=== PATIENT | female | born 1940 | race Caucasian/White ===

== ENCOUNTER 2016-10-23 11:28 | Emergency (ER) | payer MEDICAID, MEDICARE ==
[~2016-10-23] VITALS: Ht 157.5 cm; Wt 69.0 kg
[~2016-10-23 11:28] MED LIST: ASPI-482 PO; FAMO20 PO; HUMLIS7525 SQ; INSREG SQ; LISI-661 PO; LORA10TA7 PO; NAPR-58 PO; SIMV5TAB6 PO
[2016-10-23] MEDS ORDERED: HYDR25TA PO (11:46)
[2016-10-23] MEDS ORDERED: PANT40TA25 PO (11:46)
[2016-10-23] MEDS ORDERED: MECL-111 PO (11:46)
[2016-10-23] MEDS ORDERED: KETOROLAC TROMETHAMINE 30 MG/ML VIAL IVP ONE (12:45)
[2016-10-23] MEDS ORDERED: ONDANSETRON HCL 4 MG/2 ML VIAL IVP ONE (12:45)
[2016-10-23] MEDS ORDERED: SODIUM CHLORIDE 0.9% 1,000 ML IV ONE (12:45)
[2016-10-23 13:04] LABS: BASOPHILS % (AUTO) 0.5 % (0.0-2.0); EOSINOPHILS % (AUTO) 1.5 % (1.0-6.0); HEMATOCRIT 37.9 % (36-46); HEMOGLOBIN 12.6 g/dL (12.0-16.0); LYMPHOCYTES # (AUTO) 2.9 K/uL (1.0-4.8); LYMPHOCYTES % (AUTO) 39.6 % (22.0-44.0); MEAN CORPUSCULAR HEMOGLOBIN 29.3 pg (26.0-34.0); MEAN CORPUSCULAR HGB CONC 33.2 G/dL (31.0-37.0); MEAN CORPUSCULAR VOLUME 88 fL (80-100); MONOCYTES # (AUTO) 0.5 K/uL (0.1-1.0); MONOCYTES % (AUTO) 6.7 % (2.0-9.0); NEUTROPHILS # (AUTO) 3.8 K/uL (1.8-7.7); NEUTROPHILS % (AUTO) 51.7 % (40.0-70.0); PLATELET COUNT (AUTO) 193 K/uL (150-450); RED CELL DISTRIBUTION WIDTH 13.5 % (11.5-14.5); WHITE BLOOD COUNT (AUTO) 7.3 K/uL (4.5-11.0)
[2016-10-23 13:23] LABS: CALCIUM, TOTAL 8.2 mg/dL (8.8-10.5); CREATININE 0.96 mg/dL (0.60-1.30); POTASSIUM 3.5 mmol/L (3.5-5.1)
[2016-10-23 13:27] LABS: ALBUMIN 3.9 g/dL (3.4-5.0); BILIRUBIN,TOTAL 0.3 mg/dL (0.1-1.0); TOTAL PROTEIN, SERUM 7.3 g/dL (6.4-8.2)
[2016-10-23 13:58] LABS: APPEARANCE,URINE CLOUDY (CLEAR); GLUCOSE, URINE (UA) NEGATIVE (NEGATIVE); KETONES,URINE NEGATIVE (NEGATIVE); LEUKOCYTE ESTERASE ,URINE SMALL (NEGATIVE); OCCULT BLOOD,URINE NEGATIVE (NEGATIVE); PH,URINE 6.5 (5.0-8.0); PROTEIN,URINE NEGATIVE (NEGATIVE)
[2016-10-23 13:59] LABS: ADD UA MICROSCOPIC YES
[2016-10-23 14:15] LABS: RBC,URINE None Seen /HPF (0-2)
[2016-10-23 14:18] LABS: SQUAMOUS EPITHELIAL CELL,UR Rare /LPF (None Seen)
[2016-10-23] MEDS ORDERED: HYDROCODONE/ACETAMINOPHEN 5-325 MG TABLET PO ONE (21:00)
[2016-10-23] MEDS ORDERED: CIPROFLOXACIN HCL 250 MG TABLET PO ONE (21:15)
[2016-10-23 21:21] VITALS: BP 141/71
[2017-02-21] MEDS ORDERED: MECL-111 PO (11:48)
[2017-02-21] MEDS ORDERED: HUMLIS7525 SQ (11:48)
== END 2016-10-23 21:40 | disposition home or self-care (01) ==
LOC: EMS 11:31
DX: N21.1 Calculus in urethra (principal); N39.0 Urinary tract infection, site not specified; E11.9 Type 2 diabetes mellitus without complications; K21.9 Gastro-esophageal reflux disease without esophagitis; E78.00 Pure hypercholesterolemia, unspecified; I10 Essential (primary) hypertension; Z79.4 Long term (current) use of insulin; Z86.73 Personal history of transient ischemic attack (TIA), and cerebral infarction without residual deficits; Z79.82 Long term (current) use of aspirin
CPT/HCPCS: 36415; 71010; 74176; 76700; 80053; 81001; 82962; 83690; 84484; 85025; 87077; 87086; 87186; 93005; 96361; 96374; 96375; 99285; J1885; J2405; J7030

== ENCOUNTER 2017-02-25 05:57 | Day surgery (SDC) | payer MEDICARE ==
[~2017-02-25] VITALS: Ht 151.1 cm; Wt 71.8 kg
[~2017-02-25 05:57] MED LIST changes: -FAMO20 PO; -INSREG SQ; +MECL-111 PO; +PANT40TA25 PO; -SIMV5TAB6 PO
[2017-02-25] MEDS ORDERED: SODIUM CHLORIDE 0.9% 1,000 ML IV ONE ×2 (06:05→06:30)
[2017-02-25 07:22] LABS: GLUCOSE,POINT OF CARE 309 MG/DL (70-110)
[2017-02-25] MEDS ORDERED: LIDOCAINE HCL/PF 2% 5 ML VIAL INJ ONE (12:00)
[2017-02-25] MEDS ORDERED: PROPOFOL 1% 20 ML VIAL IVP ONE (12:00)
== END 2017-02-25 09:40 | disposition home or self-care (01) ==
LOC: SURGERY 05:57
PROVIDERS: ATTEND Specialist
DX: K29.70 Gastritis, unspecified, without bleeding (principal); K44.9 Diaphragmatic hernia without obstruction or gangrene; K21.9 Gastro-esophageal reflux disease without esophagitis; M19.90 Unspecified osteoarthritis, unspecified site; E78.00 Pure hypercholesterolemia, unspecified; E11.22 Type 2 diabetes mellitus with diabetic chronic kidney disease; I12.9 Hypertensive chronic kidney disease with stage 1 through stage 4 chronic kidney disease, or unspecified chronic kidney disease; N18.9 Chronic kidney disease, unspecified; K75.81 Nonalcoholic steatohepatitis (NASH); Z72.89 Other problems related to lifestyle; Z90.49 Acquired absence of other specified parts of digestive tract; Z79.82 Long term (current) use of aspirin; Z98.42 Cataract extraction status, left eye; Z98.41 Cataract extraction status, right eye; Z90.710 Acquired absence of both cervix and uterus; Z87.01 Personal history of pneumonia (recurrent)
CPT/HCPCS: 43239; 82962; 88305; 88312; C1769; J2704; J3490; J7030

== ENCOUNTER 2018-02-10 13:22 | Emergency (ER) | payer MEDICARE ==
[~2018-02-10] VITALS: Ht 152.4 cm; Wt 70.0 kg
[2018-02-10 13:33] LABS: GLUCOSE,POINT OF CARE 197 MG/DL (70-110)
[2018-02-10] MEDS ORDERED: IOVERSOL 350 MG/ML 100 ML VIAL ONE (15:03)
[2018-02-10] MEDS ORDERED: SODIUM CHLORIDE 0.9% 100 ML ONE (15:03)
[2018-02-10] MEDS ORDERED: BARIUM SULFATE 0.1% SUSPENSION 450 ML BOTTLE PO ONE (15:30)
[2018-02-10] MEDS ORDERED: LISI-662 PO (15:30)
[2018-02-10 16:06] LABS: EOSINOPHILS % (AUTO) 2.5 % (1.0-6.0); HEMATOCRIT 37.1 % (36-46); HEMOGLOBIN 12.4 g/dL (12.0-16.0); LYMPHOCYTES % (AUTO) 34.7 % (22.0-44.0); MEAN CORPUSCULAR HEMOGLOBIN 29.1 pg (26.0-34.0); MEAN CORPUSCULAR HGB CONC 33.5 G/dL (31.0-37.0); MEAN CORPUSCULAR VOLUME 87 fL (80-100); MONOCYTES # (AUTO) 0.4 K/uL (0.1-1.0); MONOCYTES % (AUTO) 7.5 % (2.0-9.0); NEUTROPHILS # (AUTO) 3.1 K/uL (1.8-7.7); NEUTROPHILS % (AUTO) 54.3 % (40.0-70.0); PLATELET COUNT (AUTO) 202 K/uL (150-450); RED BLOOD CELL COUNT(AUTO) 4.28 MIL/uL (4.00-5.20); RED CELL DISTRIBUTION WIDTH 13.7 % (11.5-14.5)
[2018-02-10 16:19] LABS: CALCIUM, TOTAL 8.7 mg/dL (8.8-10.5); CREATININE 1.08 mg/dL (0.60-1.30)
[2018-02-10 16:24] LABS: ALBUMIN 3.6 g/dL (3.4-5.0); BILIRUBIN,TOTAL 0.3 mg/dL (0.1-1.0); TOTAL PROTEIN, SERUM 7.2 g/dL (6.4-8.2)
[2018-02-10 18:31] LABS: APPEARANCE,URINE CLEAR (CLEAR); BILIRUBIN,URINE NEGATIVE (NEGATIVE); GLUCOSE, URINE (UA) 100 mg/dL (NEGATIVE); KETONES,URINE NEGATIVE (NEGATIVE); LEUKOCYTE ESTERASE ,URINE SMALL (NEGATIVE); NITRATE,URINE NEGATIVE (NEGATIVE); OCCULT BLOOD,URINE NEGATIVE (NEGATIVE); PROTEIN,URINE NEGATIVE (NEGATIVE)
[2018-02-10 18:43] LABS: BACTERIA,URINE Few /HPF (None Seen); SQUAMOUS EPITHELIAL CELL,UR Rare /LPF (None Seen)
[2018-02-10 19:00] VITALS: BP 152/94
== END 2018-02-10 19:10 | disposition home or self-care (01) ==
LOC: EMS 13:23
DX: S92.422A Displaced fracture of distal phalanx of left great toe, initial encounter for closed fracture (principal); I10 Essential (primary) hypertension; N39.0 Urinary tract infection, site not specified; K21.9 Gastro-esophageal reflux disease without esophagitis; E78.00 Pure hypercholesterolemia, unspecified; E11.9 Type 2 diabetes mellitus without complications; Z86.73 Personal history of transient ischemic attack (TIA), and cerebral infarction without residual deficits; Z79.4 Long term (current) use of insulin; Z79.82 Long term (current) use of aspirin; W22.8XXA Striking against or struck by other objects, initial encounter; Y93.01 Activity, walking, marching and hiking; Y92.89 Other specified places as the place of occurrence of the external cause; Y99.8 Other external cause status
CPT/HCPCS: 36415; 73630; 74177; 80053; 81001; 82962; 83690; 84484; 85025; 87077; 87086; 93005; 99285; J7050; Q9967

== ENCOUNTER 2018-02-28 12:17 | Emergency (ER) | payer MEDICARE ==
[~2018-02-28] VITALS: Ht 152.4 cm; Wt 69.1 kg
[~2018-02-28 12:17] MED LIST changes: -LISI-661 PO; +LISI-662 PO; -PANT40TA25 PO
[2018-02-28 12:34] LABS: GLUCOSE,POINT OF CARE 130 MG/DL (70-110)
[2018-02-28 12:57] VITALS: BP 148/79
== END 2018-02-28 13:20 | disposition home or self-care (01) ==
LOC: EMS 12:18
DX: E11.40 Type 2 diabetes mellitus with diabetic neuropathy, unspecified (principal); M79.671 Pain in right foot; M79.672 Pain in left foot; K21.9 Gastro-esophageal reflux disease without esophagitis; E78.00 Pure hypercholesterolemia, unspecified; I10 Essential (primary) hypertension; Z79.4 Long term (current) use of insulin; Z86.73 Personal history of transient ischemic attack (TIA), and cerebral infarction without residual deficits; Z79.82 Long term (current) use of aspirin
CPT/HCPCS: 99283

== ENCOUNTER 2018-07-20 17:15 | Emergency (ER) | payer MEDICARE ==
[~2018-07-20] VITALS: Ht 152.4 cm; Wt 67.7 kg
[2018-07-20] MEDS ORDERED: SODIUM CHLORIDE 0.9% 250 ML IRRIG SOLUTION BOTTLE IRRIG ONE (17:45)
[2018-07-20] MEDS ORDERED: TraMADol HCL 50 MG TABLET PO ONE (17:45)
[2018-07-20 21:38] VITALS: BP 143/75
== END 2018-07-20 21:48 | disposition home or self-care (01) ==
LOC: EMS 17:17
DX: S01.01XA Laceration without foreign body of scalp, initial encounter (principal); S70.02XA Contusion of left hip, initial encounter; E11.9 Type 2 diabetes mellitus without complications; K21.9 Gastro-esophageal reflux disease without esophagitis; E78.00 Pure hypercholesterolemia, unspecified; I10 Essential (primary) hypertension; K76.9 Liver disease, unspecified; Z86.73 Personal history of transient ischemic attack (TIA), and cerebral infarction without residual deficits; Z90.49 Acquired absence of other specified parts of digestive tract; Z90.710 Acquired absence of both cervix and uterus; Z98.51 Tubal ligation status; Z98.890 Other specified postprocedural states; Z79.4 Long term (current) use of insulin; Z79.899 Other long term (current) drug therapy; W01.190A Fall on same level from slipping, tripping and stumbling with subsequent striking against furniture, initial encounter; Y93.89 Activity, other specified; Y92.89 Other specified places as the place of occurrence of the external cause; Y99.8 Other external cause status
CPT/HCPCS: 12002; 70450; 72125; 73503

== ENCOUNTER 2018-10-19 10:48 | Emergency (ER) | payer MEDICARE, MEDICAID ==
[~2018-10-19] VITALS: Ht 149.9 cm; Wt 64.1 kg
[~2018-10-19 10:48] MED LIST changes: -HUMLIS7525 SQ; +METF-444 PO; -NAPR-58 PO; +PANT20TA PO
[2018-10-19] MEDS ORDERED: HYDROCODONE/ACETAMINOPHEN 5-325 MG TABLET PO ONE (11:15)
[2018-10-19] MEDS ORDERED: SODIUM CHLORIDE 0.9% 250 ML IRRIG SOLUTION BOTTLE IRRIG ONE (11:15)
[2018-10-19] MEDS ORDERED: PERTUSS(ACELL),DIPH,TET VAC/PF 0.5 ML VIAL IM ONE (11:15)
[2018-10-19] MEDS ORDERED: LIDOCAINE 1%/EPI 1:200,000/PF 10 ML VIAL INJ ONE (11:30)
[2018-10-19] MEDS ORDERED: BACITRACIN 0.9 GM PACKET OINTMENT TP ONE (13:00)
[2018-10-19 13:04] VITALS: BP 155/82
== END 2018-10-19 14:13 | disposition home or self-care (01) ==
LOC: EMS 10:49
DX: S01.81XA Laceration without foreign body of other part of head, initial encounter (principal); S80.211A Abrasion, right knee, initial encounter; E11.9 Type 2 diabetes mellitus without complications; K21.9 Gastro-esophageal reflux disease without esophagitis; E78.00 Pure hypercholesterolemia, unspecified; I10 Essential (primary) hypertension; Z90.710 Acquired absence of both cervix and uterus; Z98.51 Tubal ligation status; Z79.899 Other long term (current) drug therapy; Z79.82 Long term (current) use of aspirin; W18.09XA Striking against other object with subsequent fall, initial encounter; Y93.89 Activity, other specified; Y92.89 Other specified places as the place of occurrence of the external cause; Y99.8 Other external cause status
CPT/HCPCS: 12013; 70450; 73562; 82962; 90471; 90715; 99284; J3490

== ENCOUNTER → 2018-10-24 | Emergency (ER) | payer MEDICARE, MEDICAID ==
[~2018-10-24] VITALS: Ht 160 cm; Wt 64.1 kg
[~2018-10-24] MED LIST changes: +ACETAMINOPHEN 325 MG TABLET PO ONE; +INSNOV SQ
[2018-10-24 08:45] VITALS: BP 140/66
== END | disposition home or self-care (01) ==
LOC: EMS 08:32
DX: S01.81XD Laceration without foreign body of other part of head, subsequent encounter (principal); E11.9 Type 2 diabetes mellitus without complications; K21.9 Gastro-esophageal reflux disease without esophagitis; E78.00 Pure hypercholesterolemia, unspecified; I10 Essential (primary) hypertension; Z79.4 Long term (current) use of insulin; Z79.899 Other long term (current) drug therapy; Z98.51 Tubal ligation status; Z90.710 Acquired absence of both cervix and uterus; Z86.73 Personal history of transient ischemic attack (TIA), and cerebral infarction without residual deficits; X58.XXXD Exposure to other specified factors, subsequent encounter

== ENCOUNTER 2018-12-20 18:11 | Emergency (ER) | payer MEDICARE, MEDICAID ==
[~2018-12-20] VITALS: Ht 152.4 cm; Wt 68.2 kg
[~2018-12-20 18:11] MED LIST changes: -ACETAMINOPHEN 325 MG TABLET PO ONE; -METF-444 PO
[2018-12-20 18:18] VITALS: BP 149/75
[2018-12-20] MEDS ORDERED: FAMO20 PO (18:23)
[2018-12-20 18:29] LABS: GLUCOSE,POINT OF CARE 173 MG/DL (70-110)
== END 2018-12-20 19:30 | disposition left against medical advice (07) ==
LOC: EMS 18:13
DX: Z53.21 Procedure and treatment not carried out due to patient leaving prior to being seen by health care provider (principal)

== ENCOUNTER 2019-04-01 10:22 | Emergency (ER) | payer MEDICARE, MEDICAID ==
[~2019-04-01] VITALS: Ht 154.9 cm; Wt 70.5 kg
[~2019-04-01 10:22] MED LIST changes: +FAMO20 PO; -LORA10TA7 PO; -MECL-111 PO; -PANT20TA PO
[2019-04-01 10:34] LABS: GLUCOSE,POINT OF CARE 82 MG/DL (70-110)
[2019-04-01] MEDS ORDERED: ASPIRIN 81 MG CHEWABLE TABLET PO ONE (11:30)
[2019-04-01 11:59] LABS: BASOPHILS % (AUTO) 0.6 % (0.0-2.0); EOSINOPHILS % (AUTO) 2.8 % (1.0-6.0); HEMATOCRIT 35.2 % (36-46); HEMOGLOBIN 11.5 g/dL (12.0-16.0); LYMPHOCYTES # (AUTO) 1.9 K/uL (1.0-4.8); MEAN CORPUSCULAR HEMOGLOBIN 28.6 pg (26.0-34.0); MEAN CORPUSCULAR HGB CONC 32.6 G/dL (31.0-37.0); MEAN CORPUSCULAR VOLUME 88 fL (80-100); MONOCYTES # (AUTO) 0.4 K/uL (0.1-1.0); MONOCYTES % (AUTO) 7.1 % (2.0-9.0); NEUTROPHILS # (AUTO) 3.4 K/uL (1.8-7.7); NEUTROPHILS % (AUTO) 57.5 % (40.0-70.0); PLATELET COUNT (AUTO) 184 K/uL (150-450); RED BLOOD CELL COUNT(AUTO) 4.02 MIL/uL (4.00-5.20); RED CELL DISTRIBUTION WIDTH 14.3 % (11.5-14.5)
[2019-04-01 12:06] LABS: CALCIUM, TOTAL 9.1 mg/dL (8.8-10.5); CREATININE 1.02 mg/dL (0.60-1.30); POTASSIUM 4.1 mmol/L (3.5-5.1)
[2019-04-01 12:12] LABS: ALBUMIN 3.5 g/dL (3.4-5.0); BILIRUBIN,TOTAL 0.4 mg/dL (0.1-1.0); TOTAL PROTEIN, SERUM 7.2 g/dL (6.4-8.2)
[2019-04-01 12:40] LABS: APPEARANCE,URINE CLEAR (CLEAR); BILIRUBIN,URINE NEGATIVE (NEGATIVE); GLUCOSE, URINE (UA) NEGATIVE (NEGATIVE); KETONES,URINE NEGATIVE (NEGATIVE); LEUKOCYTE ESTERASE ,URINE SMALL (NEGATIVE); NITRATE,URINE POSITIVE (NEGATIVE); OCCULT BLOOD,URINE NEGATIVE (NEGATIVE); PH,URINE 6.5 (5.0-8.0); PROTEIN,URINE NEGATIVE (NEGATIVE)
[2019-04-01 12:48] LABS: BACTERIA,URINE Many /HPF (None Seen); RBC,URINE None Seen /HPF (0-2); SQUAMOUS EPITHELIAL CELL,UR Few /LPF (None Seen)
[2019-04-01] MEDS ORDERED: CefTRIAXone 1 GM/DEXTROSE 50 ML IV ONE (14:15)
[2019-04-01 14:45] VITALS: BP 138/75
== END 2019-04-01 15:08 | disposition home or self-care (01) ==
LOC: EMS 10:24
DX: N39.0 Urinary tract infection, site not specified (principal); I10 Essential (primary) hypertension; E11.9 Type 2 diabetes mellitus without complications; E78.00 Pure hypercholesterolemia, unspecified; Z90.49 Acquired absence of other specified parts of digestive tract; Z90.710 Acquired absence of both cervix and uterus; Z98.51 Tubal ligation status; Z79.899 Other long term (current) drug therapy
CPT/HCPCS: 36415; 71045; 80053; 81001; 82550; 82962; 83880; 84484; 85025; 87086; 93005; 96365; 99285; J0696

== ENCOUNTER 2019-05-20 18:09 | Emergency (ER) | payer MEDICARE, MEDICAID ==
[~2019-05-20] VITALS: Ht 149.9 cm; Wt 65.9 kg
[2019-05-20 18:25] LABS: GLUCOSE,POINT OF CARE 383 MG/DL (70-110)
[2019-05-20] MEDS ORDERED: HYDROCODONE/ACETAMINOPHEN 5-325 MG TABLET PO ONE (20:00)
[2019-05-20] MEDS ORDERED: 0.9% SODIUM CHLORIDE 10 ML SYRINGE IVP PRN (20:00)
[2019-05-20 20:47] LABS: APPEARANCE,URINE CLEAR (CLEAR); BILIRUBIN,URINE NEGATIVE (NEGATIVE); GLUCOSE, URINE (UA) >=1000 mg/dL (NEGATIVE); KETONES,URINE NEGATIVE (NEGATIVE); LEUKOCYTE ESTERASE ,URINE NEGATIVE (NEGATIVE); NITRATE,URINE NEGATIVE (NEGATIVE); OCCULT BLOOD,URINE NEGATIVE (NEGATIVE); PH,URINE 7.5 (5.0-8.0); PROTEIN,URINE NEGATIVE (NEGATIVE)
[2019-05-20 20:57] LABS: BACTERIA,URINE None Seen /HPF (None Seen); RBC,URINE None Seen /HPF (0-2)
[2019-05-20 20:58] LABS: SQUAMOUS EPITHELIAL CELL,UR Rare /LPF (None Seen)
[2019-05-20 21:05] LABS: BASOPHILS % (AUTO) 0.7 % (0.0-2.0); EOSINOPHILS % (AUTO) 1.9 % (1.0-6.0); HEMATOCRIT 36.8 % (36-46); HEMOGLOBIN 11.9 g/dL (12.0-16.0); LYMPHOCYTES # (AUTO) 2.1 K/uL (1.0-4.8); LYMPHOCYTES % (AUTO) 36.8 % (22.0-44.0); MEAN CORPUSCULAR HEMOGLOBIN 29.2 pg (26.0-34.0); MEAN CORPUSCULAR HGB CONC 32.5 G/dL (31.0-37.0); MEAN CORPUSCULAR VOLUME 90 fL (80-100); MONOCYTES # (AUTO) 0.5 K/uL (0.1-1.0); MONOCYTES % (AUTO) 7.9 % (2.0-9.0); NEUTROPHILS % (AUTO) 52.7 % (40.0-70.0); PLATELET COUNT (AUTO) 186 K/uL (150-450); RED BLOOD CELL COUNT(AUTO) 4.09 MIL/uL (4.00-5.20); RED CELL DISTRIBUTION WIDTH 14.4 % (11.5-14.5)
[2019-05-20 21:14] LABS: CALCIUM, TOTAL 8.8 mg/dL (8.8-10.5); CREATININE 1.24 mg/dL (0.60-1.30); POTASSIUM 3.9 mmol/L (3.5-5.1)
[2019-05-20] MEDS ORDERED: INSULIN REGULAR, HUMAN 100 UNITS/ML SQ ONE (22:45)
[2019-05-20] MEDS ORDERED: SULFAMETHOX/TRIMETH DS 800-160 MG/TABLET PO ONE (22:45)
[2019-05-20] MEDS ORDERED: CEPHALEXIN MONOHYDRATE 500 MG CAPSULE PO ONE (22:45)
[2019-05-20 23:30] VITALS: BP 144/72
== END 2019-05-20 23:34 | disposition home or self-care (01) ==
LOC: EMS 18:11
DX: S80.812A Abrasion, left lower leg, initial encounter (principal); L03.116 Cellulitis of left lower limb; E11.9 Type 2 diabetes mellitus without complications; E78.00 Pure hypercholesterolemia, unspecified; I10 Essential (primary) hypertension; K21.9 Gastro-esophageal reflux disease without esophagitis; Z79.899 Other long term (current) drug therapy; Z86.73 Personal history of transient ischemic attack (TIA), and cerebral infarction without residual deficits; Z90.710 Acquired absence of both cervix and uterus; Z98.51 Tubal ligation status; X58.XXXA Exposure to other specified factors, initial encounter; Y93.89 Activity, other specified; Y92.89 Other specified places as the place of occurrence of the external cause; Y99.8 Other external cause status
CPT/HCPCS: 93970

== ENCOUNTER 2019-11-06 13:20 | Emergency (ER) | payer MEDICARE, MEDICAID ==
[~2019-11-06] VITALS: Ht 152.4 cm; Wt 65.9 kg
[2019-11-06 13:36] LABS: GLUCOSE,POINT OF CARE 173 MG/DL (70-110)
[2019-11-06 14:39] LABS: BASOPHILS % (AUTO) 0.8 % (0.0-2.0); HEMATOCRIT 35.3 % (36-46); HEMOGLOBIN 11.9 g/dL (12.0-16.0); LYMPHOCYTES % (AUTO) 27.1 % (22.0-44.0); MEAN CORPUSCULAR HEMOGLOBIN 29.4 pg (26.0-34.0); MEAN CORPUSCULAR HGB CONC 33.6 G/dL (31.0-37.0); MEAN CORPUSCULAR VOLUME 88 fL (80-100); MONOCYTES # (AUTO) 0.5 K/uL (0.1-1.0); MONOCYTES % (AUTO) 6.6 % (2.0-9.0); NEUTROPHILS # (AUTO) 4.8 K/uL (1.8-7.7); NEUTROPHILS % (AUTO) 64.5 % (40.0-70.0); PLATELET COUNT (AUTO) 195 K/uL (150-450); RED BLOOD CELL COUNT(AUTO) 4.03 MIL/uL (4.00-5.20); RED CELL DISTRIBUTION WIDTH 13.1 % (11.5-14.5)
[2019-11-06 14:53] LABS: CREATININE 1.06 mg/dL (0.60-1.30); POTASSIUM 3.7 mmol/L (3.5-5.1)
[2019-11-06 14:54] LABS: APPEARANCE,URINE CLOUDY (CLEAR); GLUCOSE, URINE (UA) 250 mg/dL (NEGATIVE); KETONES,URINE TRACE mg/dL (NEGATIVE); LEUKOCYTE ESTERASE ,URINE SMALL (NEGATIVE); NITRATE,URINE NEGATIVE (NEGATIVE); OCCULT BLOOD,URINE NEGATIVE (NEGATIVE); PROTEIN,URINE TRACE (NEGATIVE)
[2019-11-06 14:56] LABS: BILIRUBIN,URINE PRELIM. POSITIVE (NEGATIVE)
[2019-11-06 14:59] LABS: ALBUMIN 3.5 g/dL (3.4-5.0); BILIRUBIN,TOTAL 0.3 mg/dL (0.1-1.0); TOTAL PROTEIN, SERUM 6.7 g/dL (6.4-8.2)
[2019-11-06 15:31] LABS: BACTERIA,URINE Few /HPF (None Seen); RBC,URINE None Seen /HPF (0-2); SQUAMOUS EPITHELIAL CELL,UR Rare /LPF (None Seen); WBC,URINE 0-2 /HPF (0-5)
[2019-11-06 15:38] VITALS: BP 137/84
[2019-11-06 15:50] LABS: GLUCOSE,POINT OF CARE 91 MG/DL (70-110)
== END 2019-11-06 15:56 | disposition home or self-care (01) ==
LOC: EMS 13:21
DX: E11.649 Type 2 diabetes mellitus with hypoglycemia without coma (principal); E78.00 Pure hypercholesterolemia, unspecified; I10 Essential (primary) hypertension; K21.9 Gastro-esophageal reflux disease without esophagitis; Z90.710 Acquired absence of both cervix and uterus; Z98.51 Tubal ligation status; Z98.890 Other specified postprocedural states; Z86.73 Personal history of transient ischemic attack (TIA), and cerebral infarction without residual deficits; Z79.899 Other long term (current) drug therapy; Z79.4 Long term (current) use of insulin

== ENCOUNTER 2019-11-29 23:02 | Emergency (ER) | payer MEDICARE, MEDICAID ==
[~2019-11-29] VITALS: Ht 152.4 cm; Wt 66.4 kg
[2019-11-29 23:20] LABS: GLUCOSE,POINT OF CARE 36 MG/DL (70-110)
[2019-11-30] MEDS ORDERED: 0.9% SODIUM CHLORIDE 10 ML SYRINGE IVP PRN
[2019-11-30] MEDS ORDERED: DEXTROSE 50%-WATER 25 GM/50 ML SYRINGE IVP ONE
[2019-11-30 00:44] LABS: BASOPHILS % (AUTO) 0.8 % (0.0-2.0); EOSINOPHILS % (AUTO) 0.7 % (1.0-6.0); HEMATOCRIT 36.1 % (36-46); HEMOGLOBIN 11.9 g/dL (12.0-16.0); LYMPHOCYTES # (AUTO) 1.5 K/uL (1.0-4.8); LYMPHOCYTES % (AUTO) 21.3 % (22.0-44.0); MEAN CORPUSCULAR HEMOGLOBIN 28.8 pg (26.0-34.0); MEAN CORPUSCULAR VOLUME 87 fL (80-100); MONOCYTES # (AUTO) 0.5 K/uL (0.1-1.0); MONOCYTES % (AUTO) 7.2 % (2.0-9.0); PLATELET COUNT (AUTO) 178 K/uL (150-450); RED BLOOD CELL COUNT(AUTO) 4.15 MIL/uL (4.00-5.20); RED CELL DISTRIBUTION WIDTH 13.6 % (11.5-14.5)
[2019-11-30 00:48] LABS: GLUCOSE,POINT OF CARE 156 MG/DL (70-110)
[2019-11-30 00:54] LABS: ANION GAP 7 mmol/L (8-16); CARBON DIOXIDE 26 mmol/L (22-29); CHLORIDE 107 mmol/L (98-107); CREATININE 1.13 mg/dL (0.60-1.30); GLOMERULAR FILTR. RATE CALC 46 mL/min (>60); GLUCOSE,RANDOM 152 mg/dL (70-110); POTASSIUM 4.3 mmol/L (3.5-5.1); SODIUM SERUM 140 mmol/L (136-145); UREA NITROGEN, BLOOD 24 mg/dL (7-18)
[2019-11-30 01:05] LABS: ALANINE AMINOTRANSFERASE 19 U/L (12-78); ALBUMIN 3.7 g/dL (3.4-5.0); ALKALINE PHOSPHATASE 70 U/L (46-116); ASPARTATE AMINOTRANSFERASE 17 U/L (15-37); BILIRUBIN,TOTAL 0.3 mg/dL (0.1-1.0); CALCIUM, TOTAL 8.6 mg/dL (8.8-10.5); TOTAL PROTEIN, SERUM 6.9 g/dL (6.4-8.2)
[2019-11-30 01:07] LABS: LACTIC ACID 2.5 mmol/L (0.4-2.0)
[2019-11-30] MEDS ORDERED: SODIUM CHLORIDE 0.9% 1,000 ML IV ONE (01:45)
[2019-11-30 01:57] LABS: GLUCOSE,POINT OF CARE 159 MG/DL (70-110)
[2019-11-30 04:54] LABS: GLUCOSE,POINT OF CARE 165 MG/DL (70-110)
[2019-11-30 05:30] VITALS: BP 133/74
== END 2019-11-30 05:30 | disposition home or self-care (01) ==
LOC: EMS 23:02
DX: E11.649 Type 2 diabetes mellitus with hypoglycemia without coma (principal); I10 Essential (primary) hypertension; E78.00 Pure hypercholesterolemia, unspecified; K21.9 Gastro-esophageal reflux disease without esophagitis; Z79.4 Long term (current) use of insulin
CPT/HCPCS: 36415; 71045; 80053; 82962; 83605; 85025; 93005; 96361; 96374; 99285; J7030

== ENCOUNTER 2020-03-29 07:41 | Emergency (ER) | payer MEDICARE, MEDICAID ==
[~2020-03-29] VITALS: Ht 152.4 cm; Wt 65.0 kg
[2020-03-29 07:46] VITALS: BP 164/74
[2020-03-29] MEDS ORDERED: ACETAMINOPHEN 500 MG TABLET PO ONE (08:15)
== END 2020-03-29 10:40 | disposition home or self-care (01) ==
LOC: EMS 07:45
DX: S00.83XA Contusion of other part of head, initial encounter (principal); M47.812 Spondylosis without myelopathy or radiculopathy, cervical region; I10 Essential (primary) hypertension; E78.00 Pure hypercholesterolemia, unspecified; E11.9 Type 2 diabetes mellitus without complications; K21.9 Gastro-esophageal reflux disease without esophagitis; Z79.899 Other long term (current) drug therapy; W18.39XA Other fall on same level, initial encounter; Y93.89 Activity, other specified; Y92.89 Other specified places as the place of occurrence of the external cause; Y99.8 Other external cause status
CPT/HCPCS: 72040

== ENCOUNTER 2021-04-14 08:09 | Emergency (ER) | payer MEDICARE, MEDICAID ==
[~2021-04-14] VITALS: Ht 149.9 cm; Wt 61.0 kg
[~2021-04-14 08:09] MED LIST changes: -LISI-662 PO; +LISI-894 PO
[2021-04-14] MEDS ORDERED: DOXY50 PO (08:26)
[2021-04-14] MEDS ORDERED: INSLAN SQ (08:26)
[2021-04-14] MEDS ORDERED: LOSA25TA41 PO (08:28)
[2021-04-14] MEDS ORDERED: ACETAMINOPHEN 325 MG TABLET PO ONE (09:00)
[2021-04-14 09:18] LABS: BASOPHILS % (AUTO) 0.9 % (0.0-2.0); EOSINOPHILS % (AUTO) 1.8 % (1.0-6.0); LYMPHOCYTES # (AUTO) 1.8 K/uL (1.0-4.8); MEAN CORPUSCULAR HEMOGLOBIN 29.6 pg (26.0-34.0); MEAN CORPUSCULAR HGB CONC 33.3 G/dL (31.0-37.0); MEAN CORPUSCULAR VOLUME 89 fL (80-100); MONOCYTES # (AUTO) 0.5 K/uL (0.1-1.0); MONOCYTES % (AUTO) 9.5 % (2.0-9.0); NEUTROPHILS # (AUTO) 3.1 K/uL (1.8-7.7); NEUTROPHILS % (AUTO) 55.8 % (40.0-70.0); PLATELET COUNT (AUTO) 166 K/uL (150-450); RED BLOOD CELL COUNT(AUTO) 3.72 MIL/uL (4.00-5.20); RED CELL DISTRIBUTION WIDTH 13.2 % (11.5-14.5)
[2021-04-14 09:29] LABS: ANION GAP 8 mmol/L (8-16); CALCIUM, TOTAL 8.5 mg/dL (8.8-10.5); CARBON DIOXIDE 28 mmol/L (22-29); CHLORIDE 106 mmol/L (98-107); CREATININE 0.83 mg/dL (0.60-1.30); GLOMERULAR FILTR. RATE CALC > 60 mL/min (>60); GLUCOSE,RANDOM 72 mg/dL (70-110); POTASSIUM 3.5 mmol/L (3.5-5.1); SODIUM SERUM 142 mmol/L (136-145); UREA NITROGEN, BLOOD 13 mg/dL (7-18)
[2021-04-14 09:35] LABS: PROTHROMBIN TIME 11.1 SEC (9.4-11.6)
[2021-04-14 09:36] LABS: ALANINE AMINOTRANSFERASE 14 U/L (12-78); ALBUMIN 3.4 g/dL (3.4-5.0); ALKALINE PHOSPHATASE 85 U/L (46-116); ASPARTATE AMINOTRANSFERASE 16 U/L (15-37); BILIRUBIN,TOTAL 0.4 mg/dL (0.1-1.0); LIPASE 73 U/L (73-393); TOTAL PROTEIN, SERUM 6.5 g/dL (6.4-8.2)
[2021-04-14 12:00] VITALS: BP 124/72
== END 2021-04-14 12:43 | disposition home or self-care (01) ==
LOC: EMS 08:09
DX: M79.89 Other specified soft tissue disorders (principal); I11.0 Hypertensive heart disease with heart failure; I50.9 Heart failure, unspecified; E11.9 Type 2 diabetes mellitus without complications; K21.9 Gastro-esophageal reflux disease without esophagitis; E78.00 Pure hypercholesterolemia, unspecified; Z90.710 Acquired absence of both cervix and uterus; Z86.73 Personal history of transient ischemic attack (TIA), and cerebral infarction without residual deficits; Z79.4 Long term (current) use of insulin; Z79.82 Long term (current) use of aspirin
CPT/HCPCS: 71045; 80053; 82962; 83690; 84484; 85025; 85610; 93005; 93970; 99285; 36415-L1; 36415-TC

== ENCOUNTER 2022-03-16 07:41 | Emergency (ER) | payer MEDICARE, MEDICAID ==
[~2022-03-16] VITALS: Ht 154.9 cm; Wt 55.9 kg
[~2022-03-16 07:41] MED LIST changes: +DOXY50 PO; +INSLAN SQ; -LISI-894 PO; +LOSA25TA41 PO
[2022-03-16] MEDS ORDERED: OMEP20 PO (08:21)
[2022-03-16] MEDS ORDERED: APIX5TAB PO (08:21)
[2022-03-16] MEDS ORDERED: BENZ-70 PO (08:21)
[2022-03-16] MEDS ORDERED: LIDO1ADH16 TP (08:21)
[2022-03-16] MEDS ORDERED: POTA-92 PO (08:21)
[2022-03-16] MEDS ORDERED: INSU100V SQ (08:21)
[2022-03-16] MEDS ORDERED: CYAN100T45 PO (08:21)
[2022-03-16] MEDS ORDERED: TRIA15CR49 TP (08:21)
[2022-03-16] MEDS ORDERED: DAPA5TAB PO (08:21)
[2022-03-16] MEDS ORDERED: TOLT2CAP PO (08:21)
[2022-03-16] MEDS ORDERED: CHOL25TA4 PO (08:21)
[2022-03-16] MEDS ORDERED: FLUT16H NASAL (08:21)
[2022-03-16 08:42] LABS: BASOPHILS % (AUTO) 0.9 % (0.0-2.0); EOSINOPHILS % (AUTO) 1.9 % (1.0-6.0); HEMATOCRIT 31.5 % (36-46); HEMOGLOBIN 10.5 g/dL (12.0-16.0); LYMPHOCYTES # (AUTO) 1.4 K/uL (1.0-4.8); LYMPHOCYTES % (AUTO) 28.6 % (22.0-44.0); MEAN CORPUSCULAR HEMOGLOBIN 28.4 pg (26.0-34.0); MEAN CORPUSCULAR HGB CONC 33.4 G/dL (31.0-37.0); MEAN CORPUSCULAR VOLUME 85 fL (80-100); MONOCYTES # (AUTO) 0.4 K/uL (0.1-1.0); MONOCYTES % (AUTO) 7.1 % (2.0-9.0); NEUTROPHILS # (AUTO) 3.1 K/uL (1.8-7.7); NEUTROPHILS % (AUTO) 61.5 % (40.0-70.0); PLATELET COUNT (AUTO) 200 K/uL (150-450); RED BLOOD CELL COUNT(AUTO) 3.71 MIL/uL (4.00-5.20); RED CELL DISTRIBUTION WIDTH 14.1 % (11.5-14.5)
[2022-03-16 08:47] LABS: CALCIUM, TOTAL 8.4 mg/dL (8.8-10.5); POTASSIUM 3.6 mmol/L (3.5-5.1)
[2022-03-16 08:53] LABS: ALBUMIN 3.2 g/dL (3.4-5.0); BILIRUBIN,TOTAL 0.5 mg/dL (0.1-1.0); TOTAL PROTEIN, SERUM 6.6 g/dL (6.4-8.2)
[2022-03-16 11:15] VITALS: BP 159/76
== END 2022-03-16 12:36 | disposition home or self-care (01) ==
LOC: EMS 07:42
DX: S83.92XA Sprain of unspecified site of left knee, initial encounter (principal); S93.402A Sprain of unspecified ligament of left ankle, initial encounter; S00.03XA Contusion of scalp, initial encounter; S80.211A Abrasion, right knee, initial encounter; R53.1 Weakness; R51.9 Headache, unspecified; E11.9 Type 2 diabetes mellitus without complications; K80.80 Other cholelithiasis without obstruction; E78.00 Pure hypercholesterolemia, unspecified; I10 Essential (primary) hypertension; Z86.73 Personal history of transient ischemic attack (TIA), and cerebral infarction without residual deficits; Z87.19 Personal history of other diseases of the digestive system; Z98.890 Other specified postprocedural states; Z90.710 Acquired absence of both cervix and uterus; Z98.51 Tubal ligation status; W19.XXXA Unspecified fall, initial encounter; Y93.89 Activity, other specified; Y92.89 Other specified places as the place of occurrence of the external cause; Y99.8 Other external cause status
CPT/HCPCS: 70450; 80053; 82962; 83880; 84484; 85025; 93005; 99285

== ENCOUNTER 2022-08-01 21:41 | Inpatient (IN) | payer MEDICARE, MEDICAID ==
[~2022-08-01] VITALS: Ht 152.4 cm; Wt 58.5 kg
[~2022-08-01 21:41] MED LIST changes: +APIX5TAB PO; -ASPI-482 PO; +BENZ-70 PO; +CHOL25TA4 PO; +CYAN100T45 PO; +DAPA5TAB PO; -DOXY50 PO; -FAMO20 PO; +FLUT16SP NASAL; -INSLAN SQ; -INSNOV SQ; +INSU100V SQ; +LIDO1ADH16 TP; +OMEP20 PO; +POTA-92 PO; +TOLT2CAP PO; +TRIA15CR49 TP
[2022-08-01 21:55] LABS: COVID AG,FIA SOURCE NASAL SWAB
[2022-08-01 21:57] LABS: BASOPHILS % (AUTO) 0.7 % (0.0-2.0); HEMATOCRIT 30.5 % (36-46); HEMOGLOBIN 10.2 g/dL (12.0-16.0); LYMPHOCYTES # (AUTO) 2.2 K/uL (1.0-4.8); LYMPHOCYTES % (AUTO) 35.2 % (22.0-44.0); MEAN CORPUSCULAR HEMOGLOBIN 29.2 pg (26.0-34.0); MEAN CORPUSCULAR HGB CONC 33.6 G/dL (31.0-37.0); MEAN CORPUSCULAR VOLUME 87 fL (80-100); MONOCYTES # (AUTO) 0.6 K/uL (0.1-1.0); MONOCYTES % (AUTO) 9.2 % (2.0-9.0); NEUTROPHILS # (AUTO) 3.3 K/uL (1.8-7.7); NEUTROPHILS % (AUTO) 52.9 % (40.0-70.0); PLATELET COUNT (AUTO) 184 K/uL (150-450); RED BLOOD CELL COUNT(AUTO) 3.51 MIL/uL (4.00-5.20); RED CELL DISTRIBUTION WIDTH 14.3 % (11.5-14.5)
[2022-08-01] MEDS ORDERED: ATORVASTATIN CALCIUM 40 MG TABLET PO ONE (22:00)
[2022-08-01] MEDS ORDERED: HEPARIN SODIUM,PORCINE 5,000 UNITS/ML VIAL IVP ONE (22:00)
[2022-08-01 22:05] LABS: ANION GAP 9 mmol/L (8-16); CALCIUM, TOTAL 8.5 mg/dL (8.8-10.5); CARBON DIOXIDE 26 mmol/L (22-29); CHLORIDE 110 mmol/L (98-107); CREATININE 0.77 mg/dL (0.60-1.30); GLUCOSE,RANDOM 98 mg/dL (70-110); SODIUM SERUM 145 mmol/L (136-145); UREA NITROGEN, BLOOD 14 mg/dL (7-18)
[2022-08-01 22:07] LABS: GLOMERULAR FILTR. RATE CALC > 60 mL/min (>60)
[2022-08-01 22:09] LABS: PROTHROMBIN TIME 10.6 SEC (9.4-11.6)
[2022-08-01] MEDS ORDERED: ONDANSETRON HCL 4 MG/2 ML VIAL IVP ONE (22:15)
[2022-08-01] MEDS ORDERED: MORPHINE SULFATE 2 MG/ML SYRINGE IVP ONE (22:15)
[2022-08-01] MEDS ORDERED: MORPHINE SULFATE 4 MG/ML SYRINGE IVP ONE (22:15)
[2022-08-01] MEDS ORDERED: LIDOCAINE/PF 1% 30 ML VIAL ONE (22:17)
[2022-08-01] MEDS ORDERED: IOHEXOL 300 MG/ML 100 ML VIAL ONE ×2 (22:17→23:15)
[2022-08-01] MEDS ORDERED: HEPARIN SODIUM 1000 UNITS/NS 1,000 ML ONE (22:17)
[2022-08-01] MEDS ORDERED: SODIUM BICARBONATE 50 MEQ/50 ML VIAL ONE (22:17)
[2022-08-01 22:22] LABS: B-TYPE NATRIURETIC PEPTIDE 230 pg/mL (0-100)
[2022-08-01 22:30] LABS: ALANINE AMINOTRANSFERASE 15 U/L (12-78); ALBUMIN 3.3 g/dL (3.4-5.0); ALKALINE PHOSPHATASE 75 U/L (46-116); ASPARTATE AMINOTRANSFERASE 17 U/L (15-37); BILIRUBIN,TOTAL 0.2 mg/dL (0.1-1.0); CREATINE KINASE, TOTAL ONLY 233 U/L (26-192); TOTAL PROTEIN, SERUM 6.3 g/dL (6.4-8.2)
[2022-08-01] MEDS ORDERED: POTASSIUM CHL 10 MEQ/WATER 50 ML IV PRN (22:30)
[2022-08-01] MEDS ORDERED: VERAPAMIL HCL 2.5 MG/ML 2 ML VIAL ONE (22:32)
[2022-08-01] MEDS ORDERED: MIDAZOLAM HCL 2 MG/2 ML VIAL ONE (22:32)
[2022-08-01] MEDS ORDERED: NITROGLYCERIN 50 MG/D5% WATER 250 ML ONE (22:32)
[2022-08-01] MEDS ORDERED: FentaNYL CITRATE PF 100 MCG/2 ML VIAL ONE (22:32)
[2022-08-01 22:35] VITALS: BP 107/66
[2022-08-01] MEDS ORDERED: IOHEXOL 300 MG/ML 100 ML VIAL IARTER ONE ×2 (23:00→23:30)
[2022-08-01] MEDS ORDERED: HEPARIN SODIUM,PORCINE 1,000 UNITS/ML 10 ML VIAL IARTER ONE (23:00)
[2022-08-01] MEDS ORDERED: MORPHINE SULFATE 2 MG/ML SYRINGE IVP PRN (23:00)
[2022-08-01] MEDS ORDERED: ONDANSETRON HCL 4 MG/2 ML VIAL IVP PRN (23:00)
[2022-08-01] MEDS ORDERED: NITROGLYCERIN/D5W 50 MG/250 ML IV BOTTLE IARTER ONE (23:00)
[2022-08-01] MEDS ORDERED: LIDOCAINE 1% 30 ML/SOD BICARB 8.4% 4 ML SQ ONE (23:00)
[2022-08-01] MEDS ORDERED: BISACODYL 10 MG RECTAL RECTAL SUPPOSITORY PR PRN (23:00)
[2022-08-01] MEDS ORDERED: FentaNYL CITRATE PF 100 MCG/2 ML VIAL IVP ONE ×2 (23:00)
[2022-08-01] MEDS ORDERED: ZOLPIDEM TARTRATE 5 MG TABLET PO PRN (23:00)
[2022-08-01] MEDS ORDERED: MAGNESIUM HYDROXIDE SUSPENSION 30 ML UDCUP PO PRN (23:00)
[2022-08-01] MEDS ORDERED: HYDROCODONE/ACETAMINOPHEN 5-325 MG TABLET PO PRN (23:00)
[2022-08-01] MEDS ORDERED: SODIUM CHLORIDE 0.9% 500 ML IV ONE (23:00)
[2022-08-01] MEDS ORDERED: VERAPAMIL HCL 2.5 MG/ML 2 ML VIAL IARTER ONE (23:00)
[2022-08-01] MEDS ORDERED: ALBUTEROL SULFATE 2.5 MG/0.5 ML NEB SOLUTION NEB PRN (23:00)
[2022-08-01] MEDS ORDERED: HEPARIN SODIUM 1000 UNITS/NS 1,000 ML IARTER ONE (23:00)
[2022-08-01] MEDS ORDERED: IPRATROPIUM BROMIDE 0.5 MG/2.5 ML NEB SOLUTION NEB PRN (23:00)
[2022-08-01] MEDS ORDERED: PHENYLEPHRINE HCL IN 0.9% NACL 400 MCG/10 ML SYRINGE IVP ONE ×2 (23:04→23:30)
[2022-08-01] MEDS ORDERED: TICAGRELOR 90 MG TABLET PO ONE (23:30)
[2022-08-01 23:35] VITALS: BP 113/69
[2022-08-01] MEDS ORDERED: TICAGRELOR 90 MG TABLET ONE (23:36)
[2022-08-02] VITALS (18 sets, daily range): BP systolic 97–118; BP diastolic 38–65
[2022-08-02] MEDS: POTASSIUM CHLORIDE 20 MEQ ER TABLET PO PRN (01:16)
[2022-08-02 06:29] LABS: BASOPHILS % (AUTO) 0.7 % (0.0-2.0); HEMATOCRIT 33.7 % (36-46); HEMOGLOBIN 11.2 g/dL (12.0-16.0); LYMPHOCYTES # (AUTO) 1.8 K/uL (1.0-4.8); LYMPHOCYTES % (AUTO) 27.7 % (22.0-44.0); MEAN CORPUSCULAR HGB CONC 33.1 G/dL (31.0-37.0); MEAN CORPUSCULAR VOLUME 88 fL (80-100); MONOCYTES # (AUTO) 0.4 K/uL (0.1-1.0); MONOCYTES % (AUTO) 6.1 % (2.0-9.0); NEUTROPHILS # (AUTO) 4.1 K/uL (1.8-7.7); NEUTROPHILS % (AUTO) 64.5 % (40.0-70.0); PLATELET COUNT (AUTO) 175 K/uL (150-450); RED BLOOD CELL COUNT(AUTO) 3.85 MIL/uL (4.00-5.20); RED CELL DISTRIBUTION WIDTH 14.1 % (11.5-14.5)
[2022-08-02] MEDS ORDERED: INSULIN LISPRO 100 UNITS/ML SQ SCH (06:30)
[2022-08-02 07:04] LABS: ALANINE AMINOTRANSFERASE 20 U/L (12-78); ALBUMIN 3.1 g/dL (3.4-5.0); ALKALINE PHOSPHATASE 76 U/L (46-116); ANION GAP 5 mmol/L (8-16); ASPARTATE AMINOTRANSFERASE 89 U/L (15-37); BILIRUBIN,TOTAL 0.4 mg/dL (0.1-1.0); CALCIUM, TOTAL 8.3 mg/dL (8.8-10.5); CARBON DIOXIDE 29 mmol/L (22-29); CHLORIDE 105 mmol/L (98-107); CHOL/HDL RATIO 2.4 (3.9-5.7); CHOLESTEROL 136 mg/dL (131-200); CREATININE 0.82 mg/dL (0.60-1.30); GLUCOSE,RANDOM 178 mg/dL (70-110); HDL CHOLESTEROL 57 mg/dL (40-60); LDL CHOL (CALC.) 56 mg/dL (0-130); POTASSIUM 3.7 mmol/L (3.5-5.1); SODIUM SERUM 139 mmol/L (136-145); TOTAL PROTEIN, SERUM 6.1 g/dL (6.4-8.2); TRIGLYCERIDES 113 mg/dL (15-150); UREA NITROGEN, BLOOD 13 mg/dL (7-18)
[2022-08-02 07:08] LABS: % IRON SATURATION 19.1 % (22-44)
[2022-08-02 07:12] LABS: GLOMERULAR FILTR. RATE CALC > 60 mL/min (>60)
[2022-08-02 07:36] LABS: GLUCOSE,POINT OF CARE 160 MG/DL (70-110)
[2022-08-02 07:36] LABS: GLUCOSE,POINT OF CARE 162 MG/DL (70-110)
[2022-08-02] MEDS: POTASSIUM CHLORIDE 10 MEQ ER TABLET PO SCH (07:54)
[2022-08-02] MEDS: LOSARTAN POTASSIUM 25 MG TABLET PO SCH (07:54)
[2022-08-02] MEDS: ATORVASTATIN CALCIUM 40 MG TABLET PO SCH (07:55)
[2022-08-02] MEDS: CHOLECALCIFEROL (VIT D3) 1,000 UNITS [25 MCG] TABLET PO SCH (07:55)
[2022-08-02] MEDS: TICAGRELOR 90 MG TABLET PO SCH ×2 (07:55→21:07)
[2022-08-02] MEDS: DOCUSATE SODIUM 100 MG CAPSULE PO SCH ×2 (07:56→21:04)
[2022-08-02] MEDS: METOPROLOL TARTRATE 25 MG TABLET PO SCH ×2 (07:56→21:00)
[2022-08-02] MEDS: ASPIRIN 81 MG DR TABLET PO SCH (07:56)
[2022-08-02] MEDS: PANTOPRAZOLE SODIUM 40 MG/VIAL IVP SCH (07:57)
[2022-08-02] MEDS: CYANOCOBALAMIN 100 MCG TABLET PO SCH (07:57)
[2022-08-02 08:26] LABS: FREE T4 (FREE THYROXINE) 1.08 ng/dL (0.76-1.46)
[2022-08-02] MEDS ORDERED: PANTOPRAZOLE SODIUM 40 MG DR TABLET PO SCH (09:00)
[2022-08-02] MEDS ORDERED: [UNRECOGNIZED DRUG - OTHER] PO SCH (09:00)
[2022-08-02] MEDS ORDERED: TICAGRELOR 90 MG TABLET PO SCH (09:00)
[2022-08-02] MEDS: TOLTERODINE TARTRATE 2 MG ER CAPSULE PO SCH (09:08)
[2022-08-02] MEDS ORDERED: INSULIN LISPRO 100 UNITS/ML SQ PRN (11:15)
[2022-08-02] MEDS ORDERED: GLUCAGON,HUMAN RECOMBINANT 1 MG VIAL IM PRN (11:15)
[2022-08-02 11:26] LABS: GLUCOSE,POINT OF CARE 120 MG/DL (70-110)
[2022-08-02] MEDS ORDERED: DEXTROSE 50%-WATER 25 GM/50 ML SYRINGE IVP PRN (11:30)
[2022-08-02] MEDS: HEPARIN SODIUM,PORCINE 5,000 UNITS/ML VIAL SQ SCH (16:13)
[2022-08-02] MEDS: INSULIN LISPRO 100 UNITS/ML SQ PRN (18:35)
[2022-08-02 18:36] LABS: GLUCOSE,POINT OF CARE 175 MG/DL (70-110)
[2022-08-03] VITALS (9 sets, daily range): BP systolic 106–139; BP diastolic 55–86
[2022-08-03] MEDS: HEPARIN SODIUM,PORCINE 5,000 UNITS/ML VIAL SQ SCH ×3 (00:53→16:34)
[2022-08-03] MEDS: INSULIN LISPRO 100 UNITS/ML SQ PRN ×4 (04:51→20:57)
[2022-08-03 05:01] LABS: GLUCOSE,POINT OF CARE 222 MG/DL (70-110)
[2022-08-03 05:31] LABS: GLUCOSE,POINT OF CARE 188 MG/DL (70-110)
[2022-08-03 05:39] LABS: BASOPHILS % (AUTO) 0.2 % (0.0-2.0); EOSINOPHILS % (AUTO) 0.2 % (1.0-6.0); HEMATOCRIT 34.1 % (36-46); HEMOGLOBIN 11.5 g/dL (12.0-16.0); LYMPHOCYTES # (AUTO) 0.8 K/uL (1.0-4.8); LYMPHOCYTES % (AUTO) 9.9 % (22.0-44.0); MEAN CORPUSCULAR HEMOGLOBIN 29.1 pg (26.0-34.0); MEAN CORPUSCULAR HGB CONC 33.7 G/dL (31.0-37.0); MEAN CORPUSCULAR VOLUME 86 fL (80-100); MONOCYTES # (AUTO) 0.4 K/uL (0.1-1.0); MONOCYTES % (AUTO) 5.1 % (2.0-9.0); NEUTROPHILS # (AUTO) 7.2 K/uL (1.8-7.7); NEUTROPHILS % (AUTO) 84.6 % (40.0-70.0); PLATELET COUNT (AUTO) 184 K/uL (150-450); RED BLOOD CELL COUNT(AUTO) 3.95 MIL/uL (4.00-5.20); RED CELL DISTRIBUTION WIDTH 14.4 % (11.5-14.5)
[2022-08-03 05:57] LABS: ALANINE AMINOTRANSFERASE 21 U/L (12-78); ALBUMIN 2.8 g/dL (3.4-5.0); ALKALINE PHOSPHATASE 81 U/L (46-116); ANION GAP 11 mmol/L (8-16); ASPARTATE AMINOTRANSFERASE 59 U/L (15-37); BILIRUBIN,TOTAL 1.1 mg/dL (0.1-1.0); CALCIUM, TOTAL 8.4 mg/dL (8.8-10.5); CARBON DIOXIDE 25 mmol/L (22-29); CHLORIDE 103 mmol/L (98-107); CREATININE 0.78 mg/dL (0.60-1.30); GLUCOSE,RANDOM 219 mg/dL (70-110); POTASSIUM 4.6 mmol/L (3.5-5.1); SODIUM SERUM 139 mmol/L (136-145); TOTAL PROTEIN, SERUM 6.1 g/dL (6.4-8.2); UREA NITROGEN, BLOOD 10 mg/dL (7-18)
[2022-08-03 06:01] LABS: GLOMERULAR FILTR. RATE CALC > 60 mL/min (>60)
[2022-08-03] MEDS: ATORVASTATIN CALCIUM 40 MG TABLET PO SCH (08:06)
[2022-08-03] MEDS: LOSARTAN POTASSIUM 25 MG TABLET PO SCH (08:06)
[2022-08-03] MEDS: POTASSIUM CHLORIDE 10 MEQ ER TABLET PO SCH (08:06)
[2022-08-03] MEDS: PANTOPRAZOLE SODIUM 40 MG/VIAL IVP SCH (08:06)
[2022-08-03] MEDS: METOPROLOL TARTRATE 25 MG TABLET PO SCH ×2 (08:07→21:00)
[2022-08-03] MEDS: CHOLECALCIFEROL (VIT D3) 1,000 UNITS [25 MCG] TABLET PO SCH (08:07)
[2022-08-03] MEDS: TOLTERODINE TARTRATE 2 MG ER CAPSULE PO SCH (08:07)
[2022-08-03] MEDS: DOCUSATE SODIUM 100 MG CAPSULE PO SCH ×2 (08:08→21:00)
[2022-08-03] MEDS: ASPIRIN 81 MG DR TABLET PO SCH (08:08)
[2022-08-03] MEDS: CYANOCOBALAMIN 100 MCG TABLET PO SCH (08:08)
[2022-08-03] MEDS: TICAGRELOR 90 MG TABLET PO SCH ×2 (08:08→20:55)
[2022-08-03] MEDS ORDERED: FUROSEMIDE 20 MG/2 ML VIAL IVP ONE (10:00)
[2022-08-03 13:01] LABS: GLUCOSE,POINT OF CARE 255 MG/DL (70-110)
[2022-08-03] MEDS: FERROUS SULFATE 325 MG EC TABLET PO SCH (16:34)
[2022-08-03] MEDS: ACETAMINOPHEN 325 MG TABLET PO PRN ×2 (16:52→21:38)
[2022-08-03 17:01] LABS: GLUCOSE,POINT OF CARE 182 MG/DL (70-110)
[2022-08-03 20:51] LABS: GLUCOMETER DEV NAME(LOC) 5N.1C; GLUCOSE,POINT OF CARE 161 MG/DL (70-110)
[2022-08-03] MEDS: FUROSEMIDE 20 MG/2 ML VIAL IVP SCH (20:55)
[2022-08-03] MEDS ORDERED: GuaiFENesin [SUGAR-FREE] 200 MG/10 ML SOLUTION UDCUP PO PRN (22:30)
[2022-08-04 00:21] VITALS: BP 119/63
[2022-08-04] MEDS: HEPARIN SODIUM,PORCINE 5,000 UNITS/ML VIAL SQ SCH ×4 (00:27→23:56)
[2022-08-04 06:00] VITALS: BP 113/59
[2022-08-04] MEDS: INSULIN LISPRO 100 UNITS/ML SQ PRN ×4 (06:11→20:28)
[2022-08-04 07:29] LABS: BASOPHILS % (AUTO) 0.3 % (0.0-2.0); EOSINOPHILS % (AUTO) 0.2 % (1.0-6.0); HEMATOCRIT 29.9 % (36-46); HEMOGLOBIN 10.1 g/dL (12.0-16.0); LYMPHOCYTES # (AUTO) 0.7 K/uL (1.0-4.8); LYMPHOCYTES % (AUTO) 9.1 % (22.0-44.0); MEAN CORPUSCULAR HEMOGLOBIN 29.1 pg (26.0-34.0); MEAN CORPUSCULAR HGB CONC 33.7 G/dL (31.0-37.0); MEAN CORPUSCULAR VOLUME 86 fL (80-100); MONOCYTES # (AUTO) 0.6 K/uL (0.1-1.0); MONOCYTES % (AUTO) 7.6 % (2.0-9.0); NEUTROPHILS # (AUTO) 6.6 K/uL (1.8-7.7); NEUTROPHILS % (AUTO) 82.8 % (40.0-70.0); PLATELET COUNT (AUTO) 149 K/uL (150-450); RED BLOOD CELL COUNT(AUTO) 3.46 MIL/uL (4.00-5.20)
[2022-08-04 07:38] VITALS: BP 104/53
[2022-08-04 07:47] LABS: CREATININE 0.94 mg/dL (0.60-1.30); POTASSIUM 3.3 mmol/L (3.5-5.1)
[2022-08-04] MEDS: DOCUSATE SODIUM 100 MG CAPSULE PO SCH ×2 (09:00→20:13)
[2022-08-04] MEDS: LOSARTAN POTASSIUM 25 MG TABLET PO SCH (09:00)
[2022-08-04] MEDS: ASPIRIN 81 MG DR TABLET PO SCH (09:27)
[2022-08-04] MEDS: TOLTERODINE TARTRATE 2 MG ER CAPSULE PO SCH (09:28)
[2022-08-04] MEDS: TICAGRELOR 90 MG TABLET PO SCH ×2 (09:28→20:13)
[2022-08-04] MEDS: POTASSIUM CHLORIDE 10 MEQ ER TABLET PO SCH (09:29)
[2022-08-04] MEDS: FERROUS SULFATE 325 MG EC TABLET PO SCH ×2 (09:29→17:04)
[2022-08-04] MEDS: ATORVASTATIN CALCIUM 40 MG TABLET PO SCH (09:30)
[2022-08-04] MEDS: METOPROLOL TARTRATE 25 MG TABLET PO SCH ×3 (09:31→20:34)
[2022-08-04] MEDS: CYANOCOBALAMIN 100 MCG TABLET PO SCH (09:32)
[2022-08-04] MEDS: PANTOPRAZOLE SODIUM 40 MG/VIAL IVP SCH (09:33)
[2022-08-04] MEDS: FUROSEMIDE 20 MG/2 ML VIAL IVP SCH ×2 (09:46→20:11)
[2022-08-04] MEDS: CHOLECALCIFEROL (VIT D3) 1,000 UNITS [25 MCG] TABLET PO SCH (09:47)
[2022-08-04] MEDS: POTASSIUM CHLORIDE 20 MEQ ER TABLET PO PRN (10:47)
[2022-08-04 12:00] VITALS: BP 95/51
[2022-08-04 12:41] LABS: GLUCOMETER DEV NAME(LOC) 5S.1B; GLUCOSE,POINT OF CARE 237 MG/DL (70-110)
[2022-08-04 16:10] VITALS: BP 94/57
[2022-08-04 20:31] VITALS: BP 96/55
[2022-08-04 22:01] LABS: GLUCOMETER DEV NAME(LOC) 5S.1B; GLUCOSE,POINT OF CARE 165 MG/DL (70-110)
[2022-08-04 22:02] LABS: GLUCOMETER DEV NAME(LOC) 5N.1C; GLUCOSE,POINT OF CARE 174 MG/DL (70-110)
[2022-08-05] VITALS (7 sets, daily range): BP systolic 92–123; BP diastolic 46–73
[2022-08-05 06:01] LABS: BASOPHILS % (AUTO) 0.4 % (0.0-2.0); EOSINOPHILS % (AUTO) 2.6 % (1.0-6.0); HEMATOCRIT 29.4 % (36-46); HEMOGLOBIN 9.9 g/dL (12.0-16.0); LYMPHOCYTES # (AUTO) 1.3 K/uL (1.0-4.8); MEAN CORPUSCULAR HEMOGLOBIN 29.1 pg (26.0-34.0); MEAN CORPUSCULAR HGB CONC 33.5 G/dL (31.0-37.0); MEAN CORPUSCULAR VOLUME 87 fL (80-100); MONOCYTES # (AUTO) 0.6 K/uL (0.1-1.0); MONOCYTES % (AUTO) 8.6 % (2.0-9.0); NEUTROPHILS # (AUTO) 5.3 K/uL (1.8-7.7); NEUTROPHILS % (AUTO) 71.4 % (40.0-70.0); PLATELET COUNT (AUTO) 155 K/uL (150-450); RED BLOOD CELL COUNT(AUTO) 3.39 MIL/uL (4.00-5.20); RED CELL DISTRIBUTION WIDTH 14.3 % (11.5-14.5)
[2022-08-05 06:41] LABS: ALBUMIN 2.3 g/dL (3.4-5.0); BILIRUBIN,TOTAL 0.8 mg/dL (0.1-1.0); CALCIUM, TOTAL 8.2 mg/dL (8.8-10.5); CREATININE 1.08 mg/dL (0.60-1.30); POTASSIUM 3.9 mmol/L (3.5-5.1); TOTAL PROTEIN, SERUM 5.6 g/dL (6.4-8.2)
[2022-08-05 07:46] LABS: GLUCOMETER DEV NAME(LOC) 5S.1B; GLUCOSE,POINT OF CARE 131 MG/DL (70-110)
[2022-08-05] MEDS: ATORVASTATIN CALCIUM 40 MG TABLET PO SCH (08:31)
[2022-08-05] MEDS: DOCUSATE SODIUM 100 MG CAPSULE PO SCH ×2 (08:31→20:22)
[2022-08-05] MEDS: HEPARIN SODIUM,PORCINE 5,000 UNITS/ML VIAL SQ SCH ×3 (08:31→23:27)
[2022-08-05] MEDS: PANTOPRAZOLE SODIUM 40 MG/VIAL IVP SCH (08:31)
[2022-08-05] MEDS: ASPIRIN 81 MG DR TABLET PO SCH (08:32)
[2022-08-05] MEDS: FERROUS SULFATE 325 MG EC TABLET PO SCH ×2 (08:32→15:58)
[2022-08-05] MEDS: METOPROLOL TARTRATE 25 MG TABLET PO SCH ×2 (08:32→20:23)
[2022-08-05] MEDS: POTASSIUM CHLORIDE 10 MEQ ER TABLET PO SCH (08:32)
[2022-08-05] MEDS: CYANOCOBALAMIN 100 MCG TABLET PO SCH (08:33)
[2022-08-05] MEDS: TOLTERODINE TARTRATE 2 MG ER CAPSULE PO SCH (08:33)
[2022-08-05] MEDS: LOSARTAN POTASSIUM 25 MG TABLET PO SCH (08:33)
[2022-08-05] MEDS: CHOLECALCIFEROL (VIT D3) 1,000 UNITS [25 MCG] TABLET PO SCH (08:33)
[2022-08-05] MEDS: TICAGRELOR 90 MG TABLET PO SCH ×2 (08:34→20:22)
[2022-08-05] MEDS: FUROSEMIDE 20 MG TABLET PO SCH (08:35)
[2022-08-05] MEDS ORDERED: DAPA10TA PO (11:11)
[2022-08-05] MEDS ORDERED: ALBU8HFA IH (11:11)
[2022-08-05] MEDS ORDERED: LORA10TA7 PO (11:11)
[2022-08-05] MEDS ORDERED: MECL-226 PO (11:11)
[2022-08-05] MEDS ORDERED: ACET-66 PO (11:11)
[2022-08-05] MEDS ORDERED: INSU3INS3 SQ (11:11)
[2022-08-05 14:06] LABS: GLUCOMETER DEV NAME(LOC) 5N.1C; GLUCOSE,POINT OF CARE 136 MG/DL (70-110)
[2022-08-05] MEDS: INSULIN LISPRO 100 UNITS/ML SQ PRN (18:38)
[2022-08-06 03:54] VITALS: BP 100/50
[2022-08-06 06:25] LABS: BASOPHILS % (AUTO) 0.5 % (0.0-2.0); EOSINOPHILS % (AUTO) 2.9 % (1.0-6.0); HEMATOCRIT 30.8 % (36-46); HEMOGLOBIN 10.2 g/dL (12.0-16.0); LYMPHOCYTES % (AUTO) 14.2 % (22.0-44.0); MEAN CORPUSCULAR HEMOGLOBIN 28.7 pg (26.0-34.0); MEAN CORPUSCULAR VOLUME 87 fL (80-100); MONOCYTES # (AUTO) 0.5 K/uL (0.1-1.0); MONOCYTES % (AUTO) 7.4 % (2.0-9.0); NEUTROPHILS # (AUTO) 5.3 K/uL (1.8-7.7); PLATELET COUNT (AUTO) 189 K/uL (150-450); RED BLOOD CELL COUNT(AUTO) 3.53 MIL/uL (4.00-5.20); RED CELL DISTRIBUTION WIDTH 14.1 % (11.5-14.5)
[2022-08-06 06:54] LABS: ALBUMIN 2.2 g/dL (3.4-5.0); BILIRUBIN,TOTAL 0.6 mg/dL (0.1-1.0); CALCIUM, TOTAL 8.4 mg/dL (8.8-10.5); CREATININE 0.96 mg/dL (0.60-1.30); TOTAL PROTEIN, SERUM 5.8 g/dL (6.4-8.2)
[2022-08-06 07:35] VITALS: BP 98/57
[2022-08-06] MEDS: CHOLECALCIFEROL (VIT D3) 1,000 UNITS [25 MCG] TABLET PO SCH (08:17)
[2022-08-06] MEDS: FERROUS SULFATE 325 MG EC TABLET PO SCH ×2 (08:17→17:50)
[2022-08-06] MEDS: ASPIRIN 81 MG DR TABLET PO SCH (08:17)
[2022-08-06] MEDS: LOSARTAN POTASSIUM 25 MG TABLET PO SCH (08:18)
[2022-08-06] MEDS: ATORVASTATIN CALCIUM 40 MG TABLET PO SCH (08:19)
[2022-08-06] MEDS: TICAGRELOR 90 MG TABLET PO SCH ×2 (08:19→21:27)
[2022-08-06] MEDS: TOLTERODINE TARTRATE 2 MG ER CAPSULE PO SCH (08:19)
[2022-08-06] MEDS: CYANOCOBALAMIN 100 MCG TABLET PO SCH (08:19)
[2022-08-06] MEDS: FUROSEMIDE 20 MG TABLET PO SCH (08:20)
[2022-08-06] MEDS: METOPROLOL TARTRATE 25 MG TABLET PO SCH ×2 (08:20→20:23)
[2022-08-06] MEDS: POTASSIUM CHLORIDE 10 MEQ ER TABLET PO SCH (08:21)
[2022-08-06] MEDS: HEPARIN SODIUM,PORCINE 5,000 UNITS/ML VIAL SQ SCH ×3 (08:21→23:13)
[2022-08-06] MEDS: PANTOPRAZOLE SODIUM 40 MG/VIAL IVP SCH (08:21)
[2022-08-06] MEDS: DOCUSATE SODIUM 100 MG CAPSULE PO SCH ×2 (08:21→20:33)
[2022-08-06] MEDS: INSULIN LISPRO 100 UNITS/ML SQ PRN ×2 (11:57→20:33)
[2022-08-06] MEDS ORDERED: SODIUM CHLORIDE 0.9% 1,000 ML ONE (19:47)
[2022-08-06 20:25] VITALS: BP 97/57
[2022-08-07 04:40] VITALS: BP 103/50
[2022-08-07 05:46] LABS: GLUCOMETER DEV NAME(LOC) 6N.2B; GLUCOSE,POINT OF CARE 230 MG/DL (70-110)
[2022-08-07] MEDS: INSULIN LISPRO 100 UNITS/ML SQ PRN ×3 (05:48→17:36)
[2022-08-07 06:36] LABS: GLUCOMETER DEV NAME(LOC) 6N.1; GLUCOSE,POINT OF CARE 141 MG/DL (70-110)
[2022-08-07 07:30] VITALS: BP 119/59
[2022-08-07] MEDS: DOCUSATE SODIUM 100 MG CAPSULE PO SCH (08:20)
[2022-08-07] MEDS: CHOLECALCIFEROL (VIT D3) 1,000 UNITS [25 MCG] TABLET PO SCH (08:20)
[2022-08-07] MEDS: FERROUS SULFATE 325 MG EC TABLET PO SCH ×2 (08:20→17:35)
[2022-08-07] MEDS: ASPIRIN 81 MG DR TABLET PO SCH (08:20)
[2022-08-07] MEDS: ATORVASTATIN CALCIUM 40 MG TABLET PO SCH (08:20)
[2022-08-07] MEDS: FUROSEMIDE 20 MG TABLET PO SCH (08:20)
[2022-08-07] MEDS: TOLTERODINE TARTRATE 2 MG ER CAPSULE PO SCH (08:21)
[2022-08-07] MEDS: TICAGRELOR 90 MG TABLET PO SCH (08:21)
[2022-08-07] MEDS: PANTOPRAZOLE SODIUM 40 MG/VIAL IVP SCH (08:22)
[2022-08-07] MEDS: HEPARIN SODIUM,PORCINE 5,000 UNITS/ML VIAL SQ SCH ×2 (08:22→16:41)
[2022-08-07 11:44] VITALS: BP 121/64
[2022-08-07] MEDS: POTASSIUM CHLORIDE 10 MEQ ER TABLET PO SCH (11:50)
[2022-08-07] MEDS: LOSARTAN POTASSIUM 25 MG TABLET PO SCH (11:50)
[2022-08-07] MEDS: METOPROLOL TARTRATE 25 MG TABLET PO SCH (11:50)
[2022-08-07] MEDS: CYANOCOBALAMIN 100 MCG TABLET PO SCH (11:51)
[2022-08-07 15:55] VITALS: BP 128/68
[2022-08-07 17:06] LABS: COVID AG,FIA SOURCE NASAL SWAB
[2022-08-07] MEDS ORDERED: ASPI-1444 PO (18:05)
[2022-08-07] MEDS ORDERED: ATOR40TA28 PO (18:06)
[2022-08-07] MEDS ORDERED: DOCU-385 PO (18:08)
[2022-08-07] MEDS ORDERED: FERR325T27 PO (18:08)
[2022-08-07] MEDS ORDERED: FURO20 PO (18:10)
[2022-08-07] MEDS ORDERED: HEPA500018 SQ (18:10)
[2022-08-07] MEDS ORDERED: LOSA-381 PO (18:11)
[2022-08-07] MEDS ORDERED: METO25 PO (18:12)
[2022-08-07] MEDS ORDERED: TICA90TA PO (18:13)
[2022-08-07] MEDS ORDERED: ACET650S24 PR (18:14)
[2022-08-07] MEDS ORDERED: BISA-151 PO (18:15)
[2022-08-07] MEDS ORDERED: MAGN-169 PO (18:17)
[2022-08-07] MEDS ORDERED: GUAI10 PO (18:19)
[2022-08-07] MEDS ORDERED: INSU100V SQ (18:24)
[2022-08-07 22:41] LABS: GLUCOMETER DEV NAME(LOC) 6N.2B; GLUCOSE,POINT OF CARE 196 MG/DL (70-110)
[2022-08-07 22:42] LABS: GLUCOMETER DEV NAME(LOC) 6N.1; GLUCOSE,POINT OF CARE 153 MG/DL (70-110)
[2022-08-07 23:46] LABS: GLUCOMETER DEV NAME(LOC) 5S.1B; GLUCOSE,POINT OF CARE 204 MG/DL (70-110)
[2022-08-07 23:47] LABS: GLUCOMETER DEV NAME(LOC) 5N.1C; GLUCOSE,POINT OF CARE 135 MG/DL (70-110)
[2022-08-07 23:47] LABS: GLUCOMETER DEV NAME(LOC) 5S.1B; GLUCOSE,POINT OF CARE 209 MG/DL (70-110)
[2022-08-07 23:47] LABS: GLUCOMETER DEV NAME(LOC) 5S.1B; GLUCOSE,POINT OF CARE 95 MG/DL (70-110)
== END 2022-08-07 20:24 | DRG 246 ==
LOC: EMS 21:44 → ICU 23:18 → 5S 08-03 19:31 → 6S 08-06 18:50
PROVIDERS: ADMIT Hospitalist; ATTEND Hospitalist
PROC: 027137Z Dilation of Coronary Artery, Two Arteries with Four or More Drug-eluting Intraluminal Devices, Percutaneous Approach (ICD-10-PCS; principal; 2022-08-01)
PROC: B2111ZZ Fluoroscopy of Multiple Coronary Arteries using Low Osmolar Contrast (ICD-10-PCS; 2022-08-01)
DX: I21.3 ST elevation (STEMI) myocardial infarction of unspecified site (principal); I50.23 Acute on chronic systolic (congestive) heart failure; K21.9 Gastro-esophageal reflux disease without esophagitis; E87.6 Hypokalemia; E11.9 Type 2 diabetes mellitus without complications; I11.0 Hypertensive heart disease with heart failure; D64.9 Anemia, unspecified; K22.2 Esophageal obstruction; E78.5 Hyperlipidemia, unspecified; N32.81 Overactive bladder; E78.00 Pure hypercholesterolemia, unspecified; Z20.822 Contact with and (suspected) exposure to COVID-19; Z82.49 Family history of ischemic heart disease and other diseases of the circulatory system; Z83.3 Family history of diabetes mellitus; Z86.73 Personal history of transient ischemic attack (TIA), and cerebral infarction without residual deficits; Z90.710 Acquired absence of both cervix and uterus; Z98.61 Coronary angioplasty status; Z98.51 Tubal ligation status
CPT/HCPCS: 71045; 80048; 80053; 80061; 82550; 82962; 83036; 83540; 83550; 83880; 84132; 84439; 84443; 84484; 85025; 85610; 85730; 87081; 92610; 92920; 92928; 93005; 93306; 97110; 97163; 97166; 97530; 97535; 99291; C9113; G0378; J1644; J1815; J1940; J2250; J2270; J2405; J3010; J3490; J7030; Q9967; 36415-L1; 36415-TC; Z7610

== ENCOUNTER 2022-10-18 16:27 | Inpatient (IN) | payer MEDICARE, MEDICAID ==
[~2022-10-18] VITALS: Ht 160 cm; Wt 52.4 kg
[~2022-10-18 16:27] MED LIST changes: +ACET-66 PO; +ACET650S24 PR; +ALBU8HFA IH; +ASPI-1444 PO; +ATOR40TA28 PO; -BENZ-70 PO; +BISA-151 PO; +DAPA10TA PO; -DAPA5TAB PO; +DOCU-385 PO; +FERR325T27 PO; +FURO20 PO; +GUAI10 PO; +HEPA500018 SQ; +INSU3INS3 SQ; +LORA10TA7 PO; +LOSA-381 PO; +MAGN-169 PO; +MECL-226 PO; +METO25 PO; +TICA90TA PO
[2022-10-18 17:20] LABS: COVID AG,FIA SOURCE NASOPHARYNGEAL
[2022-10-18 17:23] LABS: BASOPHILS % (AUTO) 0.9 % (0.0-2.0); EOSINOPHILS % (AUTO) 1.4 % (1.0-6.0); HEMATOCRIT 28.5 % (36-46); HEMOGLOBIN 9.2 g/dL (12.0-16.0); LYMPHOCYTES # (AUTO) 1.5 K/uL (1.0-4.8); LYMPHOCYTES % (AUTO) 21.8 % (22.0-44.0); MEAN CORPUSCULAR HEMOGLOBIN 28.1 pg (26.0-34.0); MEAN CORPUSCULAR HGB CONC 32.3 G/dL (31.0-37.0); MEAN CORPUSCULAR VOLUME 87 fL (80-100); MONOCYTES # (AUTO) 0.3 K/uL (0.1-1.0); MONOCYTES % (AUTO) 4.1 % (2.0-9.0); NEUTROPHILS # (AUTO) 4.8 K/uL (1.8-7.7); NEUTROPHILS % (AUTO) 71.8 % (40.0-70.0); PLATELET COUNT (AUTO) 246 K/uL (150-450); RED BLOOD CELL COUNT(AUTO) 3.28 MIL/uL (4.00-5.20); RED CELL DISTRIBUTION WIDTH 15.3 % (11.5-14.5)
[2022-10-18 17:38] LABS: ANION GAP 8 mmol/L (8-16); CALCIUM, TOTAL 8.6 mg/dL (8.8-10.5); CARBON DIOXIDE 28 mmol/L (22-29); CHLORIDE 102 mmol/L (98-107); CREATININE 0.87 mg/dL (0.60-1.30); GLUCOSE,RANDOM 296 mg/dL (70-110); POTASSIUM 3.9 mmol/L (3.5-5.1); SODIUM SERUM 138 mmol/L (136-145); UREA NITROGEN, BLOOD 15 mg/dL (7-18)
[2022-10-18 17:40] LABS: GLOMERULAR FILTR. RATE CALC > 60 mL/min (>60)
[2022-10-18 17:44] LABS: ALANINE AMINOTRANSFERASE 13 U/L (12-78); ALBUMIN 3.5 g/dL (3.4-5.0); ALKALINE PHOSPHATASE 102 U/L (46-116); ASPARTATE AMINOTRANSFERASE 17 U/L (15-37); BILIRUBIN,TOTAL 0.3 mg/dL (0.1-1.0); TOTAL PROTEIN, SERUM 7.7 g/dL (6.4-8.2)
[2022-10-18 18:02] LABS: B-TYPE NATRIURETIC PEPTIDE 379 pg/mL (0-100)
[2022-10-18] MEDS ORDERED: FUROSEMIDE 40 MG/4 ML VIAL IVP ONE (18:15)
[2022-10-18] MEDS ORDERED: ONDANSETRON HCL 4 MG/2 ML VIAL IVP PRN (18:30)
[2022-10-18] MEDS ORDERED: DEXTROSE 50%-WATER 25 GM/50 ML SYRINGE IVP PRN (18:30)
[2022-10-18] MEDS ORDERED: ACETAMINOPHEN 325 MG TABLET PO PRN (18:30)
[2022-10-18 19:26] LABS: APPEARANCE,URINE CLEAR (CLEAR); BILIRUBIN,URINE NEGATIVE (NEGATIVE); GLUCOSE, URINE (UA) 150-200 mg/dL (NEGATIVE); KETONES,URINE NEGATIVE (NEGATIVE); LEUKOCYTE ESTERASE ,URINE NEGATIVE (NEGATIVE); NITRATE,URINE NEGATIVE (NEGATIVE); OCCULT BLOOD,URINE NEGATIVE (NEGATIVE); PROTEIN,URINE TRACE mg/dL (NEGATIVE); SPECIFIC GRAVITIY, URINE 1.007 (1.003-1.030); UROBILINOGEN,URINE <=1.0 mg/dL (<=1.0)
[2022-10-18 20:12] LABS: BACTERIA,URINE None Seen /HPF (None Seen); RBC,URINE None Seen /HPF (0-2); WBC,URINE None Seen /HPF (0-5)
[2022-10-18] MEDS: INSULIN LISPRO 100 UNITS/ML SQ PRN (20:14)
[2022-10-18 20:55] VITALS: BP 138/69
[2022-10-18] MEDS: ATORVASTATIN CALCIUM 40 MG TABLET PO SCH (21:17)
[2022-10-18] MEDS: CARVEDILOL 6.25 MG TABLET PO SCH (21:17)
[2022-10-18] MEDS: DOCUSATE SODIUM 100 MG CAPSULE PO SCH (21:17)
[2022-10-18] MEDS: TICAGRELOR 90 MG TABLET PO SCH (21:17)
[2022-10-18] MEDS: HEPARIN SODIUM,PORCINE 5,000 UNITS/ML VIAL SQ SCH (23:59)
[2022-10-19 00:31] VITALS: BP 103/49
[2022-10-19 04:57] VITALS: BP 117/52
[2022-10-19 07:18] VITALS: BP 122/50
[2022-10-19] MEDS: DOCUSATE SODIUM 100 MG CAPSULE PO SCH ×2 (08:32→21:27)
[2022-10-19] MEDS: SPIRONOLACTONE 25 MG TABLET PO SCH (08:32)
[2022-10-19] MEDS: ASPIRIN 81 MG CHEWABLE TABLET PO SCH (08:32)
[2022-10-19] MEDS: HEPARIN SODIUM,PORCINE 5,000 UNITS/ML VIAL SQ SCH ×3 (08:32→23:35)
[2022-10-19] MEDS: TICAGRELOR 90 MG TABLET PO SCH ×2 (08:32→21:27)
[2022-10-19] MEDS: FAMOTIDINE 20 MG TABLET PO SCH (08:32)
[2022-10-19] MEDS: CARVEDILOL 6.25 MG TABLET PO SCH ×2 (08:33→21:00)
[2022-10-19] MEDS: LISINOPRIL 5 MG TABLET PO SCH (08:33)
[2022-10-19] MEDS ORDERED: DENTURE ADHESIVE 68 GM CREAM DT PRN (08:45)
[2022-10-19] MEDS ORDERED: FUROSEMIDE 40 MG TABLET PO SCH (09:00)
[2022-10-19 10:16] LABS: GLUCOMETER DEV NAME(LOC) ERT.5; GLUCOSE,POINT OF CARE 205 MG/DL (70-110)
[2022-10-19 11:23] VITALS: BP 118/54
[2022-10-19] MEDS: INSULIN LISPRO 100 UNITS/ML SQ PRN ×2 (12:16→17:35)
[2022-10-19 16:11] VITALS: BP 120/60
[2022-10-19 17:46] LABS: GLUCOMETER DEV NAME(LOC) 5S.2B; GLUCOSE,POINT OF CARE 208 MG/DL (70-110)
[2022-10-19 20:04] LABS: GLUCOMETER DEV NAME(LOC) 5N.1C; GLUCOSE,POINT OF CARE 163 MG/DL (70-110)
[2022-10-19 20:13] LABS: GLUCOMETER DEV NAME(LOC) 5S.1B; GLUCOSE,POINT OF CARE 276 MG/DL (70-110)
[2022-10-19 20:51] VITALS: BP 104/49
[2022-10-19] MEDS: ATORVASTATIN CALCIUM 40 MG TABLET PO SCH (21:27)
[2022-10-20 00:30] VITALS: BP 104/49
[2022-10-20 04:35] VITALS: BP 135/52
[2022-10-20 05:47] LABS: GLUCOMETER DEV NAME(LOC) 5S.2B; GLUCOSE,POINT OF CARE 142 MG/DL (70-110)
[2022-10-20 06:03] LABS: BASOPHILS % (AUTO) 1.1 % (0.0-2.0); EOSINOPHILS % (AUTO) 2.7 % (1.0-6.0); HEMATOCRIT 26.5 % (36-46); HEMOGLOBIN 8.9 g/dL (12.0-16.0); LYMPHOCYTES # (AUTO) 1.7 K/uL (1.0-4.8); LYMPHOCYTES % (AUTO) 29.2 % (22.0-44.0); MEAN CORPUSCULAR HEMOGLOBIN 28.6 pg (26.0-34.0); MEAN CORPUSCULAR HGB CONC 33.4 G/dL (31.0-37.0); MEAN CORPUSCULAR VOLUME 86 fL (80-100); MONOCYTES # (AUTO) 0.4 K/uL (0.1-1.0); MONOCYTES % (AUTO) 6.1 % (2.0-9.0); NEUTROPHILS # (AUTO) 3.5 K/uL (1.8-7.7); NEUTROPHILS % (AUTO) 60.9 % (40.0-70.0); PLATELET COUNT (AUTO) 215 K/uL (150-450); RED BLOOD CELL COUNT(AUTO) 3.09 MIL/uL (4.00-5.20); RED CELL DISTRIBUTION WIDTH 15.3 % (11.5-14.5)
[2022-10-20 06:30] LABS: ALBUMIN 2.8 g/dL (3.4-5.0); BILIRUBIN,TOTAL 0.5 mg/dL (0.1-1.0); CALCIUM, TOTAL 8.4 mg/dL (8.8-10.5); CREATININE 0.99 mg/dL (0.60-1.30); POTASSIUM 4.1 mmol/L (3.5-5.1); TOTAL PROTEIN, SERUM 6.4 g/dL (6.4-8.2)
[2022-10-20 07:50] VITALS: BP 121/51
[2022-10-20] MEDS: HEPARIN SODIUM,PORCINE 5,000 UNITS/ML VIAL SQ SCH (08:18)
[2022-10-20] MEDS: FAMOTIDINE 20 MG TABLET PO SCH (08:19)
[2022-10-20] MEDS: ASPIRIN 81 MG CHEWABLE TABLET PO SCH (08:19)
[2022-10-20] MEDS: CARVEDILOL 6.25 MG TABLET PO SCH (08:19)
[2022-10-20] MEDS: SPIRONOLACTONE 25 MG TABLET PO SCH (08:19)
[2022-10-20] MEDS: LISINOPRIL 5 MG TABLET PO SCH (08:20)
[2022-10-20] MEDS: DOCUSATE SODIUM 100 MG CAPSULE PO SCH (08:20)
[2022-10-20] MEDS: TICAGRELOR 90 MG TABLET PO SCH (08:20)
[2022-10-20 08:33] LABS: GLUCOMETER DEV NAME(LOC) 5N.1C; GLUCOSE,POINT OF CARE 147 MG/DL (70-110)
[2022-10-20] MEDS ORDERED: FUROSEMIDE 20 MG/2 ML VIAL IVP SCH (09:00)
[2022-10-20] MEDS: INSULIN LISPRO 100 UNITS/ML SQ PRN (12:14)
[2022-10-20] MEDS ORDERED: FURO20 PO (12:36)
[2022-10-20] MEDS ORDERED: TICA90TA PO (12:36)
[2022-10-20] MEDS ORDERED: ASPI81 PO (12:36)
[2022-10-20] MEDS ORDERED: LISI-892 PO (12:36)
[2022-10-20] MEDS ORDERED: SPIR-37 PO (12:36)
[2022-10-20] MEDS ORDERED: METF-1211 PO (12:36)
[2022-10-20] MEDS ORDERED: ATOR40TA71 PO (12:36)
[2022-10-20] MEDS ORDERED: CARV6 PO (12:36)
[2022-10-21 17:36] LABS: GLUCOMETER DEV NAME(LOC) 5N.1C; GLUCOSE,POINT OF CARE 248 MG/DL (70-110)
== END 2022-10-20 17:30 | disposition home or self-care (01) | DRG 291 ==
LOC: EMS 16:45 → 5S 19:41
PROVIDERS: ADMIT Internal Medicine; ATTEND Internal Medicine
DX: I11.0 Hypertensive heart disease with heart failure (principal); E43 Unspecified severe protein-calorie malnutrition; I50.43 Acute on chronic combined systolic (congestive) and diastolic (congestive) heart failure; E11.40 Type 2 diabetes mellitus with diabetic neuropathy, unspecified; D63.8 Anemia in other chronic diseases classified elsewhere; I25.10 Atherosclerotic heart disease of native coronary artery without angina pectoris; K21.9 Gastro-esophageal reflux disease without esophagitis; E78.00 Pure hypercholesterolemia, unspecified; I25.2 Old myocardial infarction; Z95.5 Presence of coronary angioplasty implant and graft; Z79.899 Other long term (current) drug therapy; Z86.73 Personal history of transient ischemic attack (TIA), and cerebral infarction without residual deficits; Z90.710 Acquired absence of both cervix and uterus; Z98.51 Tubal ligation status; Z79.82 Long term (current) use of aspirin; Z68.20 Body mass index [BMI] 20.0-20.9, adult
CPT/HCPCS: 71045; 80053; 81001; 81003; 82962; 83880; 84484; 85025; 93005; 93306; 99285; J1644; J1815; J1940; 36415-L1; 36415-TC

== ENCOUNTER 2023-01-10 17:03 | Inpatient (IN) | payer MEDICARE, MEDICAID ==
[~2023-01-10] VITALS: Ht 154.9 cm; Wt 53.6 kg
[~2023-01-10 17:03] MED LIST changes: -ACET650S24 PR; +ALBU18HF12 IH; -ALBU8HFA IH; -APIX5TAB PO; -ASPI-1444 PO; +ASPI81 PO; -ATOR40TA28 PO; +ATOR40TA71 PO; -BISA-151 PO; +CARV6 PO; -CHOL25TA4 PO; +CLOP75TA32 PO; -CYAN100T45 PO; -DAPA10TA PO; -DOCU-385 PO; -FERR325T27 PO; -FLUT16SP NASAL; -FURO20 PO; -GUAI10 PO; -HEPA500018 SQ; -INSU100V SQ; -INSU3INS3 SQ; -LIDO1ADH16 TP; -LORA10TA7 PO; -LOSA-381 PO; -LOSA25TA41 PO; -MAGN-169 PO; -MECL-226 PO; +METF-1211 PO; -METO25 PO; -OMEP20 PO; +OMEP20CA12 PO; -POTA-92 PO; -TICA90TA PO; -TOLT2CAP PO; -TRIA15CR49 TP
[2023-01-10 18:20] LABS: BASOPHILS % (AUTO) 0.6 % (0.0-2.0); EOSINOPHILS % (AUTO) 3.5 % (1.0-6.0); HEMATOCRIT 30.7 % (36-46); LYMPHOCYTES # (AUTO) 1.5 K/uL (1.0-4.8); LYMPHOCYTES % (AUTO) 27.6 % (22.0-44.0); MEAN CORPUSCULAR HEMOGLOBIN 27.1 pg (26.0-34.0); MEAN CORPUSCULAR HGB CONC 32.5 G/dL (31.0-37.0); MEAN CORPUSCULAR VOLUME 84 fL (80-100); MONOCYTES # (AUTO) 0.3 K/uL (0.1-1.0); MONOCYTES % (AUTO) 6.2 % (2.0-9.0); NEUTROPHILS # (AUTO) 3.3 K/uL (1.8-7.7); NEUTROPHILS % (AUTO) 62.1 % (40.0-70.0); PLATELET COUNT (AUTO) 182 K/uL (150-450); RED BLOOD CELL COUNT(AUTO) 3.67 MIL/uL (4.00-5.20); RED CELL DISTRIBUTION WIDTH 15.7 % (11.5-14.5)
[2023-01-10 18:26] LABS: COVID AG,FIA SOURCE NASOPHARYNGEAL
[2023-01-10 18:32] LABS: ANION GAP 6 mmol/L (8-16); CALCIUM, TOTAL 8.6 mg/dL (8.8-10.5); CARBON DIOXIDE 28 mmol/L (22-29); CHLORIDE 105 mmol/L (98-107); CREATININE 0.69 mg/dL (0.60-1.30); GLOMERULAR FILTR. RATE CALC > 60 mL/min (>60); GLUCOSE,RANDOM 220 mg/dL (70-110); POTASSIUM 3.8 mmol/L (3.5-5.1); SODIUM SERUM 139 mmol/L (136-145); UREA NITROGEN, BLOOD 23 mg/dL (7-18)
[2023-01-10 18:38] LABS: ALANINE AMINOTRANSFERASE 22 U/L (12-78); ALBUMIN 3.4 g/dL (3.4-5.0); ALKALINE PHOSPHATASE 106 U/L (46-116); ASPARTATE AMINOTRANSFERASE 16 U/L (15-37); BILIRUBIN,TOTAL 0.3 mg/dL (0.1-1.0); LIPASE 195 U/L (73-393); TOTAL PROTEIN, SERUM 6.9 g/dL (6.4-8.2)
[2023-01-10 18:40] LABS: LACTIC ACID 1.3 mmol/L (0.4-2.0)
[2023-01-10 18:46] LABS: B-TYPE NATRIURETIC PEPTIDE 343 pg/mL (0-100)
[2023-01-10] MEDS ORDERED: ASPIRIN 325 MG TABLET PO ONE (21:30)
[2023-01-10] MEDS ORDERED: ACETAMINOPHEN 500 MG TABLET PO ONE (21:30)
[2023-01-10] MEDS ORDERED: NITROGLYCERIN 2% (1 GM=INCH) OINTMENT PACKET TP ONE (21:30)
[2023-01-10] MEDS ORDERED: MORPHINE SULFATE 2 MG/ML SYRINGE IVP PRN (22:00)
[2023-01-10] MEDS ORDERED: MAGNESIUM HYDROXIDE SUSPENSION 30 ML UDCUP PO PRN (22:00)
[2023-01-10] MEDS ORDERED: BISACODYL 10 MG RECTAL RECTAL SUPPOSITORY PR PRN (22:00)
[2023-01-10] MEDS ORDERED: LORazepam 1 MG TABLET PO ONE (22:00)
[2023-01-10] MEDS ORDERED: ONDANSETRON HCL 4 MG/2 ML VIAL IVP PRN (22:00)
[2023-01-10] MEDS ORDERED: HYDROCODONE/ACETAMINOPHEN 5-325 MG TABLET PO PRN (22:00)
[2023-01-10] MEDS ORDERED: ACETAMINOPHEN 325 MG TABLET PO PRN (22:00)
[2023-01-10] MEDS ORDERED: ZOLPIDEM TARTRATE 5 MG TABLET PO PRN (22:00)
[2023-01-10] MEDS: HEPARIN SODIUM,PORCINE 5,000 UNITS/ML VIAL SQ SCH (23:44)
[2023-01-11 05:26] LABS: BASOPHILS % (AUTO) 1.1 % (0.0-2.0); EOSINOPHILS % (AUTO) 5.1 % (1.0-6.0); HEMATOCRIT 29.3 % (36-46); HEMOGLOBIN 9.8 g/dL (12.0-16.0); LYMPHOCYTES # (AUTO) 1.9 K/uL (1.0-4.8); LYMPHOCYTES % (AUTO) 35.5 % (22.0-44.0); MEAN CORPUSCULAR HEMOGLOBIN 27.6 pg (26.0-34.0); MEAN CORPUSCULAR HGB CONC 33.4 G/dL (31.0-37.0); MEAN CORPUSCULAR VOLUME 83 fL (80-100); MONOCYTES # (AUTO) 0.4 K/uL (0.1-1.0); MONOCYTES % (AUTO) 8.5 % (2.0-9.0); NEUTROPHILS # (AUTO) 2.6 K/uL (1.8-7.7); NEUTROPHILS % (AUTO) 49.8 % (40.0-70.0); PLATELET COUNT (AUTO) 189 K/uL (150-450); RED BLOOD CELL COUNT(AUTO) 3.55 MIL/uL (4.00-5.20); RED CELL DISTRIBUTION WIDTH 15.3 % (11.5-14.5)
[2023-01-11 05:42] LABS: ANION GAP 6 mmol/L (8-16); CALCIUM, TOTAL 8.5 mg/dL (8.8-10.5); CARBON DIOXIDE 28 mmol/L (22-29); CHLORIDE 105 mmol/L (98-107); CREATININE 0.84 mg/dL (0.60-1.30); GLOMERULAR FILTR. RATE CALC > 60 mL/min (>60); GLUCOSE,RANDOM 208 mg/dL (70-110); POTASSIUM 3.8 mmol/L (3.5-5.1); SODIUM SERUM 139 mmol/L (136-145); UREA NITROGEN, BLOOD 22 mg/dL (7-18)
[2023-01-11] MEDS: HEPARIN SODIUM,PORCINE 5,000 UNITS/ML VIAL SQ SCH ×3 (08:18→23:47)
[2023-01-11] MEDS: CARVEDILOL 6.25 MG TABLET PO SCH ×2 (08:18→20:20)
[2023-01-11] MEDS: CLOPIDOGREL BISULFATE 75 MG TABLET PO SCH (08:18)
[2023-01-11] MEDS: ASPIRIN 81 MG CHEWABLE TABLET PO SCH (08:19)
[2023-01-11] MEDS: MetFORMIN HCL 500 MG TABLET PO SCH ×2 (08:19→17:35)
[2023-01-11] MEDS: DOCUSATE SODIUM 100 MG CAPSULE PO SCH ×2 (08:19→21:00)
[2023-01-11] MEDS: PANTOPRAZOLE SODIUM 40 MG DR TABLET PO SCH (08:19)
[2023-01-11 08:36] LABS: GLUCOSE,POINT OF CARE 149 MG/DL (70-110)
[2023-01-11] MEDS ORDERED: CLOPIDOGREL BISULFATE 75 MG TABLET PO SCH (09:00)
[2023-01-11 10:01] VITALS: BP 117/47
[2023-01-11 12:12] VITALS: BP 115/51
[2023-01-11 15:01] VITALS: BP 117/47
[2023-01-11 20:19] VITALS: BP 123/53
[2023-01-11] MEDS ORDERED: ATORVASTATIN CALCIUM 40 MG TABLET PO SCH (21:00)
[2023-01-12 04:34] VITALS: BP 118/52
[2023-01-12 07:05] LABS: BASOPHILS % (AUTO) 0.5 % (0.0-2.0); EOSINOPHILS % (AUTO) 3.8 % (1.0-6.0); HEMATOCRIT 32.1 % (36-46); HEMOGLOBIN 10.6 g/dL (12.0-16.0); LYMPHOCYTES # (AUTO) 1.5 K/uL (1.0-4.8); LYMPHOCYTES % (AUTO) 26.3 % (22.0-44.0); MEAN CORPUSCULAR HEMOGLOBIN 27.3 pg (26.0-34.0); MEAN CORPUSCULAR VOLUME 83 fL (80-100); MONOCYTES # (AUTO) 0.4 K/uL (0.1-1.0); MONOCYTES % (AUTO) 7.5 % (2.0-9.0); NEUTROPHILS # (AUTO) 3.5 K/uL (1.8-7.7); NEUTROPHILS % (AUTO) 61.9 % (40.0-70.0); PLATELET COUNT (AUTO) 187 K/uL (150-450); RED BLOOD CELL COUNT(AUTO) 3.88 MIL/uL (4.00-5.20); RED CELL DISTRIBUTION WIDTH 15.3 % (11.5-14.5)
[2023-01-12 07:14] LABS: ANION GAP 6 mmol/L (8-16); CALCIUM, TOTAL 8.9 mg/dL (8.8-10.5); CARBON DIOXIDE 29 mmol/L (22-29); CHLORIDE 104 mmol/L (98-107); CREATININE 0.74 mg/dL (0.60-1.30); GLOMERULAR FILTR. RATE CALC > 60 mL/min (>60); GLUCOSE,RANDOM 187 mg/dL (70-110); POTASSIUM 4.5 mmol/L (3.5-5.1); SODIUM SERUM 139 mmol/L (136-145); UREA NITROGEN, BLOOD 22 mg/dL (7-18)
[2023-01-12 07:23] VITALS: BP 116/52
[2023-01-12] MEDS: PANTOPRAZOLE SODIUM 40 MG DR TABLET PO SCH (08:47)
[2023-01-12] MEDS: ASPIRIN 81 MG CHEWABLE TABLET PO SCH (08:47)
[2023-01-12] MEDS: HEPARIN SODIUM,PORCINE 5,000 UNITS/ML VIAL SQ SCH (08:47)
[2023-01-12] MEDS: CLOPIDOGREL BISULFATE 75 MG TABLET PO SCH (08:48)
[2023-01-12] MEDS: MetFORMIN HCL 500 MG TABLET PO SCH (08:48)
[2023-01-12] MEDS: DOCUSATE SODIUM 100 MG CAPSULE PO SCH (09:00)
[2023-01-12] MEDS: CARVEDILOL 6.25 MG TABLET PO SCH (09:12)
[2023-01-12 11:24] VITALS: BP 112/50
[2023-01-12] MEDS ORDERED: PANT-31 PO (14:03)
== END 2023-01-12 15:11 | disposition home or self-care (01) | DRG 391 ==
LOC: EMS 17:10 → AHU 22:10 → 5S 01-11 09:46
PROVIDERS: ADMIT Internal Medicine; ATTEND Internal Medicine
DX: K21.9 Gastro-esophageal reflux disease without esophagitis (principal); E43 Unspecified severe protein-calorie malnutrition; I25.10 Atherosclerotic heart disease of native coronary artery without angina pectoris; Z20.822 Contact with and (suspected) exposure to COVID-19; Z68.22 Body mass index [BMI] 22.0-22.9, adult; Z95.5 Presence of coronary angioplasty implant and graft; E78.00 Pure hypercholesterolemia, unspecified; I11.0 Hypertensive heart disease with heart failure; I50.9 Heart failure, unspecified; Z86.73 Personal history of transient ischemic attack (TIA), and cerebral infarction without residual deficits; E11.65 Type 2 diabetes mellitus with hyperglycemia; I48.91 Unspecified atrial fibrillation; J45.909 Unspecified asthma, uncomplicated; Z90.710 Acquired absence of both cervix and uterus; Z79.899 Other long term (current) drug therapy; E78.5 Hyperlipidemia, unspecified
CPT/HCPCS: 71045; 80048; 80053; 82962; 83605; 83690; 83880; 84484; 85025; 93005; 93306; 99291; G0378; J1644; 36415-L1; 36415-TC

== ENCOUNTER 2023-03-26 11:19 | Emergency (ER) | payer MEDICARE, MEDICAID ==
[~2023-03-26] VITALS: Ht 149.9 cm; Wt 52.3 kg
[~2023-03-26 11:19] MED LIST changes: -ACET-66 PO; -OMEP20CA12 PO; +PANT-31 PO
[2023-03-26] MEDS ORDERED: SPIR-37 PO (11:37)
[2023-03-26] MEDS ORDERED: LORA-1370 PO (11:37)
[2023-03-26] MEDS ORDERED: FURO20 PO (11:37)
[2023-03-26] MEDS ORDERED: INSU100V SQ (11:38)
[2023-03-26 11:47] VITALS: TEMP 97.9
[2023-03-26 12:31] LABS: BASOPHILS % (AUTO) 0.7 % (0.0-2.0); EOSINOPHILS % (AUTO) 2.9 % (1.0-6.0); HEMATOCRIT 30.1 % (36-46); LYMPHOCYTES # (AUTO) 1.9 K/uL (1.0-4.8); LYMPHOCYTES % (AUTO) 33.1 % (22.0-44.0); MEAN CORPUSCULAR HEMOGLOBIN 28.4 pg (26.0-34.0); MEAN CORPUSCULAR HGB CONC 33.1 G/dL (31.0-37.0); MEAN CORPUSCULAR VOLUME 86 fL (80-100); MONOCYTES # (AUTO) 0.3 K/uL (0.1-1.0); NEUTROPHILS # (AUTO) 3.3 K/uL (1.8-7.7); NEUTROPHILS % (AUTO) 57.3 % (40.0-70.0); PLATELET COUNT (AUTO) 182 K/uL (150-450); RED BLOOD CELL COUNT(AUTO) 3.51 MIL/uL (4.00-5.20); RED CELL DISTRIBUTION WIDTH 14.4 % (11.5-14.5)
[2023-03-26 12:38] LABS: CALCIUM, TOTAL 8.7 mg/dL (8.8-10.5); CREATININE 1.01 mg/dL (0.60-1.30); POTASSIUM 4.6 mmol/L (3.5-5.1)
[2023-03-26 12:44] LABS: ALBUMIN 3.5 g/dL (3.4-5.0); BILIRUBIN,TOTAL 0.3 mg/dL (0.1-1.0); TOTAL PROTEIN, SERUM 6.8 g/dL (6.4-8.2)
[2023-03-26 12:58] LABS: INR 1.1 (0.9-1.1); PROTHROMBIN TIME 11.4 SEC (9.4-11.6)
[2023-03-26 15:35] VITALS: BP 158/60; PULSE 57; RESP 19
[2023-03-26 15:42] LABS: GLUCOMETER DEV NAME(LOC) ERT.5; GLUCOSE,POINT OF CARE 145 MG/DL (70-110)
== END 2023-03-26 17:11 | disposition home or self-care (01) ==
LOC: EMS 11:21
DX: R07.89 Other chest pain (principal); I48.91 Unspecified atrial fibrillation; M19.90 Unspecified osteoarthritis, unspecified site; E11.9 Type 2 diabetes mellitus without complications; E78.00 Pure hypercholesterolemia, unspecified; I25.10 Atherosclerotic heart disease of native coronary artery without angina pectoris; I11.0 Hypertensive heart disease with heart failure; I70.90 Unspecified atherosclerosis; Z90.49 Acquired absence of other specified parts of digestive tract; Z90.89 Acquired absence of other organs; Z90.710 Acquired absence of both cervix and uterus; Z98.51 Tubal ligation status; Z98.890 Other specified postprocedural states
CPT/HCPCS: 71045; 80053; 82962; 83880; 84484; 85025; 85610; 85730; 93005; 99285; 36415-L1; 36415-TC

== ENCOUNTER 2023-05-29 07:08 | Inpatient (IN) | payer MEDICARE, MEDICAID ==
[~2023-05-29] VITALS: Ht 152.4 cm; Wt 54.4 kg
[~2023-05-29 07:08] MED LIST changes: +FURO20 PO; +INSU100V SQ; +LORA-1370 PO; -METF-1211 PO; +SPIR-37 PO
[2023-05-29] MEDS ORDERED: NITROGLYCERIN 2% (1 GM=INCH) OINTMENT PACKET TP ONE (07:30)
[2023-05-29 07:56] LABS: BASOPHILS % (AUTO) 0.7 % (0.0-2.0); EOSINOPHILS % (AUTO) 4.1 % (1.0-6.0); HEMOGLOBIN 8.9 g/dL (12.0-16.0); LYMPHOCYTES # (AUTO) 1.5 K/uL (1.0-4.8); LYMPHOCYTES % (AUTO) 27.3 % (22.0-44.0); MEAN CORPUSCULAR HEMOGLOBIN 27.3 pg (26.0-34.0); MEAN CORPUSCULAR HGB CONC 31.8 G/dL (31.0-37.0); MEAN CORPUSCULAR VOLUME 86 fL (80-100); MONOCYTES # (AUTO) 0.4 K/uL (0.1-1.0); MONOCYTES % (AUTO) 7.6 % (2.0-9.0); NEUTROPHILS # (AUTO) 3.2 K/uL (1.8-7.7); NEUTROPHILS % (AUTO) 60.3 % (40.0-70.0); PLATELET COUNT (AUTO) 197 K/uL (150-450); RED BLOOD CELL COUNT(AUTO) 3.26 MIL/uL (4.00-5.20); RED CELL DISTRIBUTION WIDTH 14.6 % (11.5-14.5); WHITE BLOOD COUNT (AUTO) 5.3 K/uL (4.5-11.0)
[2023-05-29 08:14] LABS: INR 1.1 (0.9-1.1); PROTHROMBIN TIME 11.5 SEC (9.4-11.6)
[2023-05-29 08:53] LABS: ANION GAP 8 mmol/L (8-16); CALCIUM, TOTAL 8.5 mg/dL (8.8-10.5); CARBON DIOXIDE 27 mmol/L (22-29); CHLORIDE 107 mmol/L (98-107); GLOMERULAR FILTR. RATE CALC > 60 mL/min (>60); GLUCOSE,RANDOM 176 mg/dL (70-110); POTASSIUM 3.8 mmol/L (3.5-5.1); SODIUM SERUM 142 mmol/L (136-145); UREA NITROGEN, BLOOD 19 mg/dL (7-18)
[2023-05-29 09:00] LABS: TROPONIN I-HIGH SENSITIVITY 5 ng/L (<51)
[2023-05-29 09:17] LABS: ALANINE AMINOTRANSFERASE 10 U/L (12-78); ALBUMIN 3.3 g/dL (3.4-5.0); ALKALINE PHOSPHATASE 81 U/L (46-116); ASPARTATE AMINOTRANSFERASE 15 U/L (15-37); BILIRUBIN,TOTAL 0.4 mg/dL (0.1-1.0); CREATINE KINASE, TOTAL ONLY 107 U/L (26-192); TOTAL PROTEIN, SERUM 6.4 g/dL (6.4-8.2)
[2023-05-29 11:13] LABS: TROPONIN I-HIGH SENSITIVITY 6 ng/L (<51)
[2023-05-29] MEDS ORDERED: INSULIN LISPRO 100 UNITS/ML SQ PRN (11:45)
[2023-05-29] MEDS ORDERED: DEXTROSE 50%-WATER 25 GM/50 ML SYRINGE IVP PRN ×2 (11:45→12:15)
[2023-05-29] MEDS: ASPIRIN 81 MG CHEWABLE TABLET PO SCH (12:15)
[2023-05-29] MEDS: INSULIN LISPRO 100 UNITS/ML SQ PRN (17:49)
[2023-05-29 17:51] LABS: GLUCOMETER DEV NAME(LOC) ERT.5; GLUCOSE,POINT OF CARE 142 MG/DL (70-110)
[2023-05-29 19:08] LABS: APPEARANCE,URINE CLEAR (CLEAR); BILIRUBIN,URINE NEGATIVE (NEGATIVE); COLOR,URINE COLORLESS (YELLOW); GLUCOSE, URINE (UA) NEGATIVE (NEGATIVE); KETONES,URINE NEGATIVE (NEGATIVE); LEUKOCYTE ESTERASE ,URINE MODERATE (NEGATIVE); NITRATE,URINE NEGATIVE (NEGATIVE); OCCULT BLOOD,URINE SMALL (NEGATIVE); PH,URINE 7.5 (5.0-8.0); PROTEIN,URINE TRACE mg/dL (NEGATIVE); SPECIFIC GRAVITIY, URINE 1.009 (1.003-1.030); UROBILINOGEN,URINE <=1.0 mg/dL (<=1.0)
[2023-05-29 19:17] LABS: BACTERIA,URINE Moderate /HPF (None Seen); RBC,URINE None Seen /HPF (0-2)
[2023-05-29 19:59] LABS: TROPONIN I-HIGH SENSITIVITY 7 ng/L (<51)
[2023-05-29] MEDS: CARVEDILOL 6.25 MG TABLET PO SCH (21:00)
[2023-05-30 01:31] VITALS: BP 155/81; PULSE 67; RESP 18; TEMP 97.9
[2023-05-30 04:52] VITALS: BP 137/55; PULSE 58; RESP 18; TEMP 97.7
[2023-05-30] MEDS: INSULIN LISPRO 100 UNITS/ML SQ PRN ×2 (06:11→12:00)
[2023-05-30 08:45] VITALS: BP 119/55; PULSE 56; RESP 18; TEMP 97.6
[2023-05-30] MEDS ORDERED: ATORVASTATIN CALCIUM 40 MG TABLET PO SCH (09:00)
[2023-05-30] MEDS ORDERED: CLOPIDOGREL BISULFATE 75 MG TABLET PO SCH (09:00)
[2023-05-30] MEDS: CARVEDILOL 6.25 MG TABLET PO SCH (10:06)
[2023-05-30] MEDS: ASPIRIN 81 MG CHEWABLE TABLET PO SCH (10:06)
[2023-05-30 11:41] LABS: GLUCOMETER DEV NAME(LOC) 5S.1B; GLUCOSE,POINT OF CARE 147 MG/DL (70-110)
[2023-05-30] MEDS ORDERED: MAGNESIUM HYDROXIDE SUSPENSION 30 ML UDCUP PO PRN (14:30)
[2023-05-30] MEDS ORDERED: ACETAMINOPHEN 325 MG TABLET PO PRN (14:30)
[2023-05-30] MEDS ORDERED: HEPARIN SODIUM,PORCINE 5,000 UNITS/ML VIAL SQ SCH (16:00)
[2023-05-31 00:16] LABS: GLUCOMETER DEV NAME(LOC) 5N.1C; GLUCOSE,POINT OF CARE 273 MG/DL (70-110)
[2023-05-31] MEDS ORDERED: FAMOTIDINE 20 MG TABLET PO SCH (09:00)
[2023-06-05] MEDS ORDERED: FAMO20 PO (16:03)
[2023-06-05] MEDS ORDERED: DOCU-385 PO (16:03)
== END 2023-05-30 13:50 | disposition home or self-care (01) | DRG 313 ==
LOC: EMS 07:16 → AHU 11:30 → 5S 23:00
PROVIDERS: ADMIT Internal Medicine; ATTEND Internal Medicine
DX: R07.89 Other chest pain (principal); I25.10 Atherosclerotic heart disease of native coronary artery without angina pectoris; E11.9 Type 2 diabetes mellitus without complications; E78.00 Pure hypercholesterolemia, unspecified; M19.90 Unspecified osteoarthritis, unspecified site; J45.909 Unspecified asthma, uncomplicated; I48.91 Unspecified atrial fibrillation; D63.8 Anemia in other chronic diseases classified elsewhere; G31.84 Mild cognitive impairment of uncertain or unknown etiology; I50.9 Heart failure, unspecified; I11.0 Hypertensive heart disease with heart failure; K21.9 Gastro-esophageal reflux disease without esophagitis; Z79.4 Long term (current) use of insulin; Z79.82 Long term (current) use of aspirin; Z79.01 Long term (current) use of anticoagulants; Z79.899 Other long term (current) drug therapy; Z95.5 Presence of coronary angioplasty implant and graft; Z86.73 Personal history of transient ischemic attack (TIA), and cerebral infarction without residual deficits; Z90.710 Acquired absence of both cervix and uterus; Z90.49 Acquired absence of other specified parts of digestive tract; Z98.891 History of uterine scar from previous surgery; Z98.51 Tubal ligation status; Z82.49 Family history of ischemic heart disease and other diseases of the circulatory system; Z83.3 Family history of diabetes mellitus
CPT/HCPCS: 71045; 80053; 81001; 82550; 82962; 83880; 84484; 85025; 85610; 85730; 87086; 87186; 93005; 99285; G0378; J1815; 36415-L1; 36415-TC

== ENCOUNTER 2023-11-10 13:02 | Emergency (ER) | payer MEDICARE, MEDICAID ==
[~2023-11-10] VITALS: Ht 149.9 cm; Wt 52.7 kg
[~2023-11-10 13:02] MED LIST changes: +CARV3 PO; -CARV6 PO; +DOCU-385 PO; +FAMO20 PO; +LEVO-72 PO; -LORA-1370 PO; -SPIR-37 PO
[2023-11-10 13:15] VITALS: BP 128/62; PULSE 62; RESP 16; TEMP 98.3
[2023-11-10] MEDS: DICLOFENAC SODIUM 1% 100 GM GEL [4GM] TP ONE (16:29)
== END 2023-11-10 22:04 | disposition home or self-care (01) ==
LOC: EMS 17:36
DX: S80.02XA Contusion of left knee, initial encounter (principal); S80.01XA Contusion of right knee, initial encounter; M19.90 Unspecified osteoarthritis, unspecified site; J45.909 Unspecified asthma, uncomplicated; E11.9 Type 2 diabetes mellitus without complications; E78.00 Pure hypercholesterolemia, unspecified; I25.10 Atherosclerotic heart disease of native coronary artery without angina pectoris; I11.0 Hypertensive heart disease with heart failure; Z90.49 Acquired absence of other specified parts of digestive tract; Z90.710 Acquired absence of both cervix and uterus; Z90.89 Acquired absence of other organs; Z98.51 Tubal ligation status; Z98.890 Other specified postprocedural states; X58.XXXA Exposure to other specified factors, initial encounter; Y93.89 Activity, other specified; Y92.89 Other specified places as the place of occurrence of the external cause; Y99.8 Other external cause status
CPT/HCPCS: 82962; 99284

== ENCOUNTER 2023-11-16 13:29 | Emergency (ER) | payer MEDICARE, MEDICAID ==
[~2023-11-16] VITALS: Ht 157.5 cm; Wt 53.2 kg
[2023-11-16] MEDS ORDERED: SPIR50TA27 PO (13:43)
[2023-11-16 13:45] VITALS: BP 138/65; PULSE 64; RESP 18; TEMP 96.8
[2023-11-16] MEDS ORDERED: ACET-3385 PO (15:16)
[2023-11-16] MEDS: ACETAMINOPHEN 325 MG TABLET PO ONE (15:38)
== END 2023-11-16 15:39 | disposition home or self-care (01) ==
LOC: EMS 13:37
DX: S80.11XA Contusion of right lower leg, initial encounter (principal); S70.11XA Contusion of right thigh, initial encounter; I11.0 Hypertensive heart disease with heart failure; I50.9 Heart failure, unspecified; J45.909 Unspecified asthma, uncomplicated; I25.10 Atherosclerotic heart disease of native coronary artery without angina pectoris; E11.9 Type 2 diabetes mellitus without complications; K21.9 Gastro-esophageal reflux disease without esophagitis; E78.00 Pure hypercholesterolemia, unspecified; K92.2 Gastrointestinal hemorrhage, unspecified; K80.20 Calculus of gallbladder without cholecystitis without obstruction; I48.91 Unspecified atrial fibrillation; I25.2 Old myocardial infarction; Z86.73 Personal history of transient ischemic attack (TIA), and cerebral infarction without residual deficits; Z87.440 Personal history of urinary (tract) infections; Z90.49 Acquired absence of other specified parts of digestive tract; Z90.710 Acquired absence of both cervix and uterus; Z90.89 Acquired absence of other organs; Z98.51 Tubal ligation status; Z98.890 Other specified postprocedural states; W05.0XXA Fall from non-moving wheelchair, initial encounter; Y93.89 Activity, other specified; Y92.89 Other specified places as the place of occurrence of the external cause; Y99.8 Other external cause status
CPT/HCPCS: 73502; 99284

== ENCOUNTER 2024-03-24 13:32 | Inpatient (IN) | payer MEDICARE, MEDICAID ==
[~2024-03-24] VITALS: Ht 162.6 cm; Wt 56.8 kg
[~2024-03-24 13:32] MED LIST changes: +ACET-3385 PO; +AMOX-457 PO; -FURO20 PO; -LEVO-72 PO; -PANT-31 PO; +SPIR50TA27 PO
[2024-03-24] MEDS ORDERED: 0.9% SODIUM CHLORIDE 10 ML SYRINGE IVP PRN (15:15)
[2024-03-24 15:41] LABS: BASOPHILS % (AUTO) 0.7 % (0.0-2.0); EOSINOPHILS % (AUTO) 3.5 % (1.0-6.0); HEMATOCRIT 29.9 % (36-46); HEMOGLOBIN 9.7 g/dL (12.0-16.0); LYMPHOCYTES % (AUTO) 26.7 % (22.0-44.0); MEAN CORPUSCULAR HEMOGLOBIN 28.2 pg (26.0-34.0); MEAN CORPUSCULAR HGB CONC 32.5 G/dL (31.0-37.0); MEAN CORPUSCULAR VOLUME 87 fL (80-100); MONOCYTES # (AUTO) 0.3 K/uL (0.1-1.0); MONOCYTES % (AUTO) 7.6 % (2.0-9.0); NEUTROPHILS # (AUTO) 2.4 K/uL (1.8-7.7); NEUTROPHILS % (AUTO) 61.5 % (40.0-70.0); PLATELET COUNT (AUTO) 180 K/uL (150-450); RED BLOOD CELL COUNT(AUTO) 3.44 MIL/uL (4.00-5.20); RED CELL DISTRIBUTION WIDTH 14.2 % (11.5-14.5); WHITE BLOOD COUNT (AUTO) 3.9 K/uL (4.5-11.0)
[2024-03-24] MEDS: SODIUM CHLORIDE 0.9% 1,150 ML IV ONE (15:47)
[2024-03-24 15:53] LABS: ANION GAP 5 mmol/L (8-16); CALCIUM, TOTAL 8.5 mg/dL (8.8-10.5); CARBON DIOXIDE 31 mmol/L (22-29); CHLORIDE 106 mmol/L (98-107); CREATININE 1.04 mg/dL (0.60-1.30); GLOMERULAR FILTR. RATE CALC 50 mL/min (>60); GLUCOSE,RANDOM 242 mg/dL (70-110); SODIUM SERUM 142 mmol/L (136-145); UREA NITROGEN, BLOOD 21 mg/dL (7-18)
[2024-03-24] MEDS: PIPERACILLIN SODIUM/TAZOBACTAM 2.25 GM in DEXTROSE 5%-WATER 50 ML IV ONE (15:54)
[2024-03-24 15:55] LABS: PROTHROMBIN TIME 10.9 SEC (9.4-11.6)
[2024-03-24 15:58] LABS: ALANINE AMINOTRANSFERASE 17 U/L (12-78); ALKALINE PHOSPHATASE 93 U/L (46-116); ASPARTATE AMINOTRANSFERASE 15 U/L (15-37); BILIRUBIN,TOTAL 0.3 mg/dL (0.1-1.0); TOTAL PROTEIN, SERUM 6.4 g/dL (6.4-8.2)
[2024-03-24 16:01] LABS: LACTIC ACID 1.3 mmol/L (0.4-2.0)
[2024-03-24] MEDS ORDERED: MORPHINE SULFATE 2 MG/ML SYRINGE IVP PRN (17:15)
[2024-03-24] MEDS ORDERED: ALBUTEROL SULFATE 2.5 MG/0.5 ML NEB SOLUTION NEB PRN (17:15)
[2024-03-24] MEDS ORDERED: ONDANSETRON HCL 4 MG/2 ML VIAL IVP PRN (17:15)
[2024-03-24] MEDS ORDERED: ALBUTEROL SULFATE HFA 90 MCG/PUFF 8 GM INHALER IH PRN (17:15)
[2024-03-24] MEDS ORDERED: BISACODYL 10 MG RECTAL RECTAL SUPPOSITORY PR PRN (17:15)
[2024-03-24] MEDS ORDERED: IPRATROPIUM BROMIDE 0.5 MG/2.5 ML NEB SOLUTION NEB PRN (17:15)
[2024-03-24] MEDS ORDERED: ZOLPIDEM TARTRATE 5 MG TABLET PO PRN (17:15)
[2024-03-24] MEDS ORDERED: MAGNESIUM HYDROXIDE SUSPENSION 30 ML UDCUP PO PRN (17:15)
[2024-03-24] MEDS ORDERED: ACETAMINOPHEN 325 MG TABLET PO PRN (17:15)
[2024-03-24] MEDS: ATORVASTATIN CALCIUM 40 MG TABLET PO SCH (20:03)
[2024-03-24] MEDS: DOCUSATE SODIUM 100 MG CAPSULE PO SCH (20:03)
[2024-03-24] MEDS: CARVEDILOL 3.125 MG TABLET PO SCH (20:03)
[2024-03-24 22:10] VITALS: BP 150/78; PULSE 67; RESP 18; TEMP 97.6
[2024-03-24] MEDS: HEPARIN SODIUM,PORCINE 5,000 UNITS/ML VIAL SQ SCH (23:14)
[2024-03-24] MEDS ORDERED: SODIUM CHLORIDE 0.9% 500 ML IV ONE (23:51)
[2024-03-25] MEDS: CeFAZolin 1 GM/DEXTROSE 50 ML IV SCH (00:07)
[2024-03-25 06:08] VITALS: BP 114/52; PULSE 61; RESP 18; TEMP 97.5
[2024-03-25 08:06] LABS: GLUCOMETER DEV NAME(LOC) 4E.2; GLUCOSE,POINT OF CARE 143 MG/DL (70-110)
[2024-03-25] MEDS: ASPIRIN 81 MG CHEWABLE TABLET PO SCH (08:34)
[2024-03-25] MEDS: PANTOPRAZOLE SODIUM 40 MG DR TABLET PO SCH (08:35)
[2024-03-25] MEDS: CLOPIDOGREL BISULFATE 75 MG TABLET PO SCH (08:36)
[2024-03-25] MEDS: HYDROCODONE/ACETAMINOPHEN 5-325 MG TABLET PO PRN (08:36)
[2024-03-25] MEDS: FAMOTIDINE 20 MG TABLET PO SCH (08:36)
[2024-03-25 09:21] VITALS: BP 118/52; PULSE 55; RESP 18; TEMP 97.4
[2024-03-25 15:49] VITALS: BP 125/48; PULSE 55; RESP 18; TEMP 97.5
[2024-03-25 20:18] VITALS: BP 115/52; PULSE 70; RESP 18; TEMP 97.7
[2024-03-26 05:08] VITALS: BP 134/53; PULSE 57; RESP 20; TEMP 97.9
[2024-03-26 08:00] VITALS: BP 121/56; PULSE 56; RESP 18; TEMP 97.6
[2024-03-26] MEDS: SPIRONOLACTONE 50 MG TABLET PO SCH (09:00)
[2024-03-26 20:06] LABS: GLUCOMETER DEV NAME(LOC) 4E.2; GLUCOSE,POINT OF CARE 219 MG/DL (70-110)
== END 2024-03-26 16:44 | disposition home health service (06) | DRG 603 ==
LOC: EMS 13:32 → EDH 17:28 → 4E 22:00
PROVIDERS: ADMIT Hospitalist; ATTEND Hospitalist
DX: L03.116 Cellulitis of left lower limb (principal); E11.9 Type 2 diabetes mellitus without complications; K21.9 Gastro-esophageal reflux disease without esophagitis; L03.115 Cellulitis of right lower limb; I25.10 Atherosclerotic heart disease of native coronary artery without angina pectoris; E78.00 Pure hypercholesterolemia, unspecified; I11.0 Hypertensive heart disease with heart failure; I50.9 Heart failure, unspecified; Z79.4 Long term (current) use of insulin; Z79.01 Long term (current) use of anticoagulants; Z79.82 Long term (current) use of aspirin; Z79.899 Other long term (current) drug therapy; I25.2 Old myocardial infarction; Z90.49 Acquired absence of other specified parts of digestive tract; Z90.710 Acquired absence of both cervix and uterus; Z98.51 Tubal ligation status; Z86.73 Personal history of transient ischemic attack (TIA), and cerebral infarction without residual deficits
CPT/HCPCS: 71045; 80053; 83605; 84145; 85025; 85610; 87040; 93005; 97163; 99285; G0378; J0690; J1644; J2543; J7040; J7060; 36415-L1; 36415-TC

== ENCOUNTER 2024-05-24 02:55 | Emergency (ER) | payer MEDICARE, MEDICAID ==
[~2024-05-24] VITALS: Ht 152.4 cm; Wt 53.6 kg
[~2024-05-24 02:55] MED LIST changes: +ACET-2247 PO; -ACET-3385 PO; -ALBU18HF12 IH; -AMOX-457 PO; +ASPI-1450 PO; -ASPI81 PO; -ATOR40TA71 PO; +BLOO-462 IH; -CARV3 PO; +CARV3.1231 PO; +CLIN300C58 PO; -CLOP75TA32 PO; +FURO20TA4 PO; +HEPA500018 SQ; +INSU100I15 SQ; -INSU100V SQ; +INSU3INS3 SQ; -SPIR50TA27 PO; +[UNRECOGNIZED DRUG - CODE]; +[UNRECOGNIZED DRUG - CODE] TP
[2024-05-24 03:15] VITALS: TEMP 97.6
[2024-05-24] MEDS: ACETAMINOPHEN 500 MG TABLET PO ONE (06:27)
[2024-05-24 07:14] VITALS: BP 145/64; PULSE 72; RESP 16; O2SAT 100
== END 2024-05-24 10:38 | disposition home or self-care (01) ==
LOC: EMS 02:55
DX: S40.012A Contusion of left shoulder, initial encounter (principal); F03.90 Unspecified dementia, unspecified severity, without behavioral disturbance, psychotic disturbance, mood disturbance, and anxiety; R53.1 Weakness; R62.7 Adult failure to thrive; M19.90 Unspecified osteoarthritis, unspecified site; J45.909 Unspecified asthma, uncomplicated; E11.9 Type 2 diabetes mellitus without complications; E78.00 Pure hypercholesterolemia, unspecified; I11.0 Hypertensive heart disease with heart failure; Z90.49 Acquired absence of other specified parts of digestive tract; Z90.710 Acquired absence of both cervix and uterus; Z98.51 Tubal ligation status; Z98.890 Other specified postprocedural states; W05.0XXA Fall from non-moving wheelchair, initial encounter; Y93.89 Activity, other specified; Y92.89 Other specified places as the place of occurrence of the external cause; Y99.8 Other external cause status
CPT/HCPCS: 72040; 99284

== ENCOUNTER 2024-08-01 18:29 | Inpatient (IN) | payer MEDICARE, MEDICAID ==
[~2024-08-01] VITALS: Ht 134.6 cm; Wt 57.1 kg
[~2024-08-01 18:29] MED LIST changes: -BLOO-462 IH; -CARV3.1231 PO; -CLIN300C58 PO; -FURO20TA4 PO; -INSU3INS3 SQ; -[UNRECOGNIZED DRUG - CODE]
[2024-08-01 19:19] LABS: BASOPHILS % (AUTO) 0.4 % (0.0-2.0); EOSINOPHILS % (AUTO) 1.6 % (1.0-6.0); HEMATOCRIT 33.2 % (36-46); HEMOGLOBIN 10.9 g/dL (12.0-16.0); LYMPHOCYTES # (AUTO) 1.6 K/uL (1.0-4.8); LYMPHOCYTES % (AUTO) 21.5 % (22.0-44.0); MEAN CORPUSCULAR HEMOGLOBIN 28.7 pg (26.0-34.0); MEAN CORPUSCULAR HGB CONC 32.9 G/dL (31.0-37.0); MEAN CORPUSCULAR VOLUME 87 fL (80-100); MONOCYTES # (AUTO) 0.4 K/uL (0.1-1.0); MONOCYTES % (AUTO) 5.5 % (2.0-9.0); NEUTROPHILS # (AUTO) 5.2 K/uL (1.8-7.7); PLATELET COUNT (AUTO) 200 K/uL (150-450); RED CELL DISTRIBUTION WIDTH 15.4 % (11.5-14.5); WHITE BLOOD COUNT (AUTO) 7.4 K/uL (4.5-11.0)
[2024-08-01 19:48] LABS: B-TYPE NATRIURETIC PEPTIDE 77 pg/mL (0-100)
[2024-08-01 19:51] LABS: ANION GAP 12 mmol/L (8-16); CALCIUM, TOTAL 8.5 mg/dL (8.8-10.5); CARBON DIOXIDE 26 mmol/L (22-29); CHLORIDE 103 mmol/L (98-107); CREATININE 0.79 mg/dL (0.60-1.30); GLOMERULAR FILTR. RATE CALC > 60 mL/min (>60); GLUCOSE,RANDOM 169 mg/dL (70-110); POTASSIUM 4.3 mmol/L (3.5-5.1); SODIUM SERUM 141 mmol/L (136-145); UREA NITROGEN, BLOOD 31 mg/dL (7-18)
[2024-08-01 19:55] LABS: PROTHROMBIN TIME 10.4 SEC (9.4-11.6)
[2024-08-01 19:58] LABS: ALANINE AMINOTRANSFERASE 21 U/L (12-78); ALBUMIN 3.5 g/dL (3.4-5.0); ALKALINE PHOSPHATASE 92 U/L (46-116); ASPARTATE AMINOTRANSFERASE 17 U/L (15-37); BILIRUBIN,TOTAL 0.2 mg/dL (0.1-1.0); TOTAL PROTEIN, SERUM 6.7 g/dL (6.4-8.2)
[2024-08-01 19:59] LABS: TROPONIN I-HIGH SENSITIVITY 4 ng/L (<51)
[2024-08-01] MEDS ORDERED: ONDANSETRON HCL 4 MG/2 ML VIAL IVP PRN (21:15)
[2024-08-01 21:46] LABS: COVID AG,FIA SOURCE NASAL SWAB
[2024-08-01] MEDS: ASPIRIN 81 MG CHEWABLE TABLET PO SCH (21:46)
[2024-08-01] MEDS: ATORVASTATIN CALCIUM 40 MG TABLET PO ONE (21:47)
[2024-08-01 22:04] LABS: SARS-COV2 (COVID) ANTIGEN,FIA Negative (Negative)
[2024-08-01 22:05] LABS: INFLUENZA TYPE A NEGATIVE FOR TYPE A (NEGATIVE); INFLUENZA TYPE B NEGATIVE FOR TYPE B (NEGATIVE)
[2024-08-01 22:13] LABS: TROPONIN I-HIGH SENSITIVITY 12 ng/L (<51)
[2024-08-02] VITALS (7 sets, daily range): BP systolic 120–126; BP diastolic 48–68; PULSE 51–69; RESP 16–18; TEMP 97.7–98; O2SAT 97–100
[2024-08-02] MEDS: HEPARIN SODIUM,PORCINE 5,000 UNITS/ML VIAL SQ SCH (00:19)
[2024-08-02 07:13] LABS: BASOPHILS % (AUTO) 0.6 % (0.0-2.0); EOSINOPHILS % (AUTO) 3.9 % (1.0-6.0); HEMATOCRIT 34.3 % (36-46); HEMOGLOBIN 11.5 g/dL (12.0-16.0); LYMPHOCYTES # (AUTO) 1.9 K/uL (1.0-4.8); LYMPHOCYTES % (AUTO) 34.7 % (22.0-44.0); MEAN CORPUSCULAR HEMOGLOBIN 29.4 pg (26.0-34.0); MEAN CORPUSCULAR HGB CONC 33.5 G/dL (31.0-37.0); MEAN CORPUSCULAR VOLUME 88 fL (80-100); MONOCYTES # (AUTO) 0.4 K/uL (0.1-1.0); NEUTROPHILS % (AUTO) 53.8 % (40.0-70.0); PLATELET COUNT (AUTO) 194 K/uL (150-450); RED BLOOD CELL COUNT(AUTO) 3.92 MIL/uL (4.00-5.20); RED CELL DISTRIBUTION WIDTH 15.2 % (11.5-14.5); WHITE BLOOD COUNT (AUTO) 5.6 K/uL (4.5-11.0)
[2024-08-02 07:19] LABS: CARBON DIOXIDE 26 mmol/L (22-29); CHLORIDE 105 mmol/L (98-107); POTASSIUM 3.9 mmol/L (3.5-5.1); SODIUM SERUM 141 mmol/L (136-145)
[2024-08-02 07:20] LABS: ANION GAP 10 mmol/L (8-16); CALCIUM, TOTAL 8.8 mg/dL (8.8-10.5); CREATININE 0.69 mg/dL (0.60-1.30); GLOMERULAR FILTR. RATE CALC > 60 mL/min (>60); GLUCOSE,RANDOM 148 mg/dL (70-110); UREA NITROGEN, BLOOD 24 mg/dL (7-18)
[2024-08-02 07:48] LABS: TROPONIN I-HIGH SENSITIVITY 12 ng/L (<51)
[2024-08-02 08:48] LABS: TROPONIN I-HIGH SENSITIVITY 8 ng/L (<51)
[2024-08-02] MEDS: DOCUSATE SODIUM 100 MG CAPSULE PO SCH (08:49)
[2024-08-02] MEDS: FAMOTIDINE 20 MG TABLET PO SCH (08:50)
[2024-08-02] MEDS ORDERED: ASPIRIN 81 MG CHEWABLE TABLET PO SCH (09:00)
[2024-08-02 10:55] LABS: GLUCOMETER DEV NAME(LOC) 5N.2C; GLUCOSE,POINT OF CARE 143 MG/DL (70-110)
[2024-08-02 11:50] LABS: GLUCOMETER DEV NAME(LOC) 5S.1C; GLUCOSE,POINT OF CARE 247 MG/DL (70-110)
[2024-08-02] MEDS: LIDOCAINE 3% CREAM 28 GM TUBE TP SCH (11:58)
[2024-08-02] MEDS ORDERED: DEXTROSE 50%-WATER 25 GM/50 ML SYRINGE IVP PRN (17:30)
[2024-08-02] MEDS: INSULIN LISPRO 100 UNITS/ML SQ PRN (17:39)
[2024-08-02 18:21] LABS: GLUCOMETER DEV NAME(LOC) 5S.2D; GLUCOSE,POINT OF CARE 236 MG/DL (70-110)
[2024-08-02] MEDS: ATORVASTATIN CALCIUM 40 MG TABLET PO SCH (20:44)
[2024-08-03] VITALS (8 sets, daily range): BP systolic 101–152; BP diastolic 46–65; PULSE 55–84; RESP 18–20; TEMP 97.8–98.2; O2SAT 96–99
[2024-08-03 03:00] LABS: GLUCOMETER DEV NAME(LOC) 5N.1D; GLUCOSE,POINT OF CARE 157 MG/DL (70-110)
[2024-08-03 08:30] LABS: GLUCOMETER DEV NAME(LOC) 5S.1C; GLUCOSE,POINT OF CARE 147 MG/DL (70-110)
[2024-08-03] MEDS ORDERED: IBUP-2853 PO (12:23)
[2024-08-03 17:06] LABS: GLUCOMETER DEV NAME(LOC) 5S.2D; GLUCOSE,POINT OF CARE 309 MG/DL (70-110)
[2024-08-03 20:11] LABS: GLUCOMETER DEV NAME(LOC) 5N.2C; GLUCOSE,POINT OF CARE 206 MG/DL (70-110)
[2024-08-03 21:51] LABS: GLUCOMETER DEV NAME(LOC) 5N.1D; GLUCOSE,POINT OF CARE 193 MG/DL (70-110)
[2024-08-04 00:09] VITALS: BP 101/60; PULSE 65; RESP 18; TEMP 97.8; O2SAT 99
[2024-08-04 04:28] VITALS: BP 107/51; PULSE 58; RESP 18; TEMP 97.5; O2SAT 98
[2024-08-04 07:01] LABS: GLUCOMETER DEV NAME(LOC) 5S.2D; GLUCOSE,POINT OF CARE 133 MG/DL (70-110)
[2024-08-04 08:00] VITALS: BP 133/79; PULSE 60; RESP 20; TEMP 97.4; O2SAT 100
[2024-08-04] MEDS: ACETAMINOPHEN 325 MG TABLET PO PRN (08:51)
== END 2024-08-04 10:20 | DRG 206 ==
LOC: EMS 18:29 → EDH 23:42 → 5S 08-02 01:04
PROVIDERS: ADMIT Internal Medicine; ATTEND Internal Medicine
DX: M94.0 Chondrocostal junction syndrome [Tietze] (principal); I24.9 Acute ischemic heart disease, unspecified; M77.8 Other enthesopathies, not elsewhere classified; E11.9 Type 2 diabetes mellitus without complications; D64.9 Anemia, unspecified; E86.0 Dehydration; I25.10 Atherosclerotic heart disease of native coronary artery without angina pectoris; I50.9 Heart failure, unspecified; Z20.822 Contact with and (suspected) exposure to COVID-19; I11.0 Hypertensive heart disease with heart failure; K21.9 Gastro-esophageal reflux disease without esophagitis; K76.9 Liver disease, unspecified; E78.00 Pure hypercholesterolemia, unspecified; I25.2 Old myocardial infarction; F03.90 Unspecified dementia, unspecified severity, without behavioral disturbance, psychotic disturbance, mood disturbance, and anxiety; I48.91 Unspecified atrial fibrillation; Z83.3 Family history of diabetes mellitus; Z86.73 Personal history of transient ischemic attack (TIA), and cerebral infarction without residual deficits; Z86.79 Personal history of other diseases of the circulatory system; Z90.710 Acquired absence of both cervix and uterus; Z95.5 Presence of coronary angioplasty implant and graft
CPT/HCPCS: 71045; 73221; 80048; 80053; 82962; 83735; 83880; 84145; 84484; 85025; 85610; 85730; 87081; 87481; 87804; 93005; 93306; 97167; 97535; 99285; G0378; J1644; 36415-L1; 36415-TC

== ENCOUNTER 2024-08-23 05:00 | Emergency (ER) | payer MEDICARE, MEDICAID ==
[~2024-08-23] VITALS: Ht 154.9 cm; Wt 55.0 kg
[~2024-08-23 05:00] MED LIST changes: -HEPA500018 SQ; +IBUP-2853 PO
[2024-08-23 05:04] VITALS: TEMP 98.3
[2024-08-23] MEDS: FentaNYL CITRATE PF 100 MCG/2 ML VIAL IVP ONE (05:47)
[2024-08-23] MEDS: ONDANSETRON HCL 4 MG/2 ML VIAL IVP ONE (05:47)
[2024-08-23 05:59] LABS: BASOPHILS % (AUTO) 0.6 % (0.0-2.0); EOSINOPHILS % (AUTO) 3.2 % (1.0-6.0); HEMATOCRIT 32.5 % (36-46); HEMOGLOBIN 10.9 g/dL (12.0-16.0); LYMPHOCYTES # (AUTO) 1.8 K/uL (1.0-4.8); MEAN CORPUSCULAR HEMOGLOBIN 29.5 pg (26.0-34.0); MEAN CORPUSCULAR HGB CONC 33.7 G/dL (31.0-37.0); MEAN CORPUSCULAR VOLUME 88 fL (80-100); MONOCYTES # (AUTO) 0.4 K/uL (0.1-1.0); MONOCYTES % (AUTO) 7.2 % (2.0-9.0); PLATELET COUNT (AUTO) 197 K/uL (150-450); RED BLOOD CELL COUNT(AUTO) 3.71 MIL/uL (4.00-5.20); RED CELL DISTRIBUTION WIDTH 15.2 % (11.5-14.5); WHITE BLOOD COUNT (AUTO) 5.4 K/uL (4.5-11.0)
[2024-08-23 06:00] LABS: CALCIUM, TOTAL 8.7 mg/dL (8.8-10.5); CREATININE 0.96 mg/dL (0.60-1.30); POTASSIUM 3.8 mmol/L (3.5-5.1)
[2024-08-23] MEDS ORDERED: DOXY-354 PO (06:12)
[2024-08-23] MEDS: DOXYCYCLINE HYCLATE 100 MG TABLET PO ONE (06:19)
[2024-08-23 06:25] LABS: TROPONIN I-HIGH SENSITIVITY 6 ng/L (<51)
[2024-08-23 08:17] LABS: TROPONIN I-HIGH SENSITIVITY 6 ng/L (<51)
[2024-08-23 09:09] VITALS: BP 139/64; PULSE 67; RESP 16; O2SAT 100
[2024-08-23] MEDS: ACETAMINOPHEN 325 MG TABLET PO ONE (09:22)
== END 2024-08-23 10:44 ==
LOC: EMS 05:01
DX: L03.116 Cellulitis of left lower limb (principal); R07.9 Chest pain, unspecified; I11.0 Hypertensive heart disease with heart failure; I50.9 Heart failure, unspecified; E11.59 Type 2 diabetes mellitus with other circulatory complications; E78.00 Pure hypercholesterolemia, unspecified; J45.909 Unspecified asthma, uncomplicated; K21.9 Gastro-esophageal reflux disease without esophagitis; Z79.82 Long term (current) use of aspirin; Z90.49 Acquired absence of other specified parts of digestive tract; Z90.710 Acquired absence of both cervix and uterus; Z87.440 Personal history of urinary (tract) infections
CPT/HCPCS: 99284; 96374; 96375; 80048; 84484; 85025; 36415; 93005; J3010; J2405

== ENCOUNTER 2024-10-08 10:24 | Inpatient (IN) | payer MEDICARE, MEDICAID ==
[~2024-10-08] VITALS: Ht 152.4 cm; Wt 55.5 kg
[~2024-10-08 10:24] MED LIST changes: +DOXY-354 PO
[2024-10-08] MEDS ORDERED: CLOP75TA60 PO (10:26)
[2024-10-08 13:27] LABS: BASOPHILS % (AUTO) 0.9 % (0.0-2.0); HEMATOCRIT 29.5 % (36-46); HEMOGLOBIN 9.9 g/dL (12.0-16.0); LYMPHOCYTES # (AUTO) 1.4 K/uL (1.0-4.8); LYMPHOCYTES % (AUTO) 23.7 % (22.0-44.0); MEAN CORPUSCULAR HEMOGLOBIN 28.8 pg (26.0-34.0); MEAN CORPUSCULAR HGB CONC 33.7 G/dL (31.0-37.0); MEAN CORPUSCULAR VOLUME 85 fL (80-100); MONOCYTES # (AUTO) 0.4 K/uL (0.1-1.0); MONOCYTES % (AUTO) 7.5 % (2.0-9.0); NEUTROPHILS # (AUTO) 3.7 K/uL (1.8-7.7); NEUTROPHILS % (AUTO) 64.9 % (40.0-70.0); PLATELET COUNT (AUTO) 225 K/uL (150-450); RED BLOOD CELL COUNT(AUTO) 3.45 MIL/uL (4.00-5.20); RED CELL DISTRIBUTION WIDTH 13.7 % (11.5-14.5); WHITE BLOOD COUNT (AUTO) 5.7 K/uL (4.5-11.0)
[2024-10-08 13:37] LABS: ANION GAP 3 mmol/L (8-16); CALCIUM, TOTAL 8.3 mg/dL (8.8-10.5); CARBON DIOXIDE 31 mmol/L (22-29); CHLORIDE 103 mmol/L (98-107); CREATININE 0.71 mg/dL (0.60-1.30); GLOMERULAR FILTR. RATE CALC > 60 mL/min (>60); GLUCOSE,RANDOM 259 mg/dL (70-110); LIPASE 31 U/L (16-77); POTASSIUM 3.8 mmol/L (3.5-5.1); SODIUM SERUM 137 mmol/L (136-145); UREA NITROGEN, BLOOD 12 mg/dL (7-18)
[2024-10-08 13:42] LABS: B-TYPE NATRIURETIC PEPTIDE 106 pg/mL (0-100)
[2024-10-08 13:44] LABS: LACTIC ACID 0.5 mmol/L (0.4-2.0)
[2024-10-08 13:45] LABS: TROPONIN I-HIGH SENSITIVITY 9 ng/L (<51)
[2024-10-08 15:14] LABS: APPEARANCE,URINE CLEAR (CLEAR); BILIRUBIN,URINE NEGATIVE (NEGATIVE); COLOR,URINE LIGHT YELLOW (YELLOW); GLUCOSE, URINE (UA) >=1000 mg/dL (NEGATIVE); KETONES,URINE NEGATIVE (NEGATIVE); LEUKOCYTE ESTERASE ,URINE NEGATIVE (NEGATIVE); NITRATE,URINE NEGATIVE (NEGATIVE); OCCULT BLOOD,URINE NEGATIVE (NEGATIVE); PH,URINE 7.5 (5.0-8.0); PROTEIN,URINE TRACE mg/dL (NEGATIVE); UROBILINOGEN,URINE <=1.0 mg/dL (<=1.0)
[2024-10-08 15:43] LABS: BACTERIA,URINE None Seen /HPF (None Seen); RBC,URINE None Seen /HPF (0-2); WBC,URINE None Seen /HPF (0-5)
[2024-10-08] MEDS ORDERED: ALBUTEROL SULFATE 2.5 MG/0.5 ML NEB SOLUTION NEB PRN (16:15)
[2024-10-08] MEDS ORDERED: ACETAMINOPHEN 325 MG TABLET PO PRN (16:15)
[2024-10-08] MEDS ORDERED: DEXTROSE 50%-WATER 25 GM/50 ML SYRINGE IVP PRN (16:15)
[2024-10-08 19:41] LABS: GLUCOMETER DEV NAME(LOC) ERT.6; GLUCOSE,POINT OF CARE 290 MG/DL (70-110)
[2024-10-08 20:51] VITALS: BP 136/58; PULSE 81; RESP 18; TEMP 97; O2SAT 100
[2024-10-08] MEDS: DOCUSATE SODIUM 100 MG CAPSULE PO SCH (21:00)
[2024-10-08] MEDS: HEPARIN SODIUM,PORCINE 5,000 UNITS/ML VIAL SQ SCH (23:39)
[2024-10-09 05:09] VITALS: BP 129/60; PULSE 87; RESP 18; TEMP 98.3; O2SAT 97
[2024-10-09] MEDS: INSULIN LISPRO 100 UNITS/ML SQ PRN (05:17)
[2024-10-09 08:14] VITALS: BP 110/51; PULSE 80; RESP 18; TEMP 98.1; O2SAT 99
[2024-10-09] MEDS: MULTIVITAMINS WITH MINERALS, THERAPEUTIC TABLET PO SCH (08:46)
[2024-10-09] MEDS: FAMOTIDINE 20 MG TABLET PO SCH (08:46)
[2024-10-09] MEDS: ATORVASTATIN CALCIUM 20 MG TABLET PO SCH (08:46)
[2024-10-09] MEDS: ASPIRIN 81 MG CHEWABLE TABLET PO SCH (08:46)
[2024-10-09 11:40] LABS: GLUCOMETER DEV NAME(LOC) 6N.2B; GLUCOSE,POINT OF CARE 120 MG/DL (70-110)
[2024-10-09 16:06] VITALS: BP 115/58; PULSE 84; RESP 18; TEMP 98.3; O2SAT 96
[2024-10-09 17:16] LABS: GLUCOMETER DEV NAME(LOC) 6S.1D; GLUCOSE,POINT OF CARE 205 MG/DL (70-110)
[2024-10-09 19:52] VITALS: BP 119/56; PULSE 74; RESP 18; TEMP 98.1; O2SAT 98
[2024-10-09 23:50] LABS: GLUCOMETER DEV NAME(LOC) 6S.2; GLUCOSE,POINT OF CARE 135 MG/DL (70-110)
[2024-10-09 23:50] LABS: GLUCOMETER DEV NAME(LOC) 6S.2; GLUCOSE,POINT OF CARE 215 MG/DL (70-110)
[2024-10-10 04:34] VITALS: BP 130/61; PULSE 67; RESP 18; TEMP 98.1; O2SAT 97
[2024-10-10 08:10] VITALS: BP 134/58; PULSE 66; RESP 18; TEMP 98.7; O2SAT 98
[2024-10-10 09:16] LABS: GLUCOMETER DEV NAME(LOC) 6S.1D; GLUCOSE,POINT OF CARE 131 MG/DL (70-110)
[2024-10-10] MEDS ORDERED: ATOR20TA PO (09:53)
[2024-10-10] MEDS ORDERED: MULT-1303 PO (10:01)
[2024-10-10] MEDS ORDERED: ALBU2.5V39 NEB (10:03)
[2024-10-10] MEDS ORDERED: HEPA500018 SQ (10:04)
[2024-10-10 16:21] LABS: GLUCOMETER DEV NAME(LOC) 6S.2; GLUCOSE,POINT OF CARE 273 MG/DL (70-110)
[2024-10-10 19:11] LABS: GLUCOMETER DEV NAME(LOC) 6S.1D; GLUCOSE,POINT OF CARE 234 MG/DL (70-110)
[2024-10-11 05:41] VITALS: BP 133/64; PULSE 70; RESP 18; TEMP 98.1; O2SAT 97
[2024-10-11 07:51] LABS: GLUCOMETER DEV NAME(LOC) 6S.1D; GLUCOSE,POINT OF CARE 233 MG/DL (70-110)
[2024-10-11 08:19] VITALS: BP 128/61; PULSE 63; RESP 18; TEMP 97.7; O2SAT 99
[2024-10-11 11:50] LABS: GLUCOMETER DEV NAME(LOC) 6S.1D; GLUCOSE,POINT OF CARE 242 MG/DL (70-110)
== END 2024-10-11 15:55 | DRG 884 ==
LOC: EMS 10:25 → EDH 17:03 → 6S 20:36
PROVIDERS: ADMIT Internal Medicine; ATTEND Internal Medicine
DX: F03.90 Unspecified dementia, unspecified severity, without behavioral disturbance, psychotic disturbance, mood disturbance, and anxiety (principal); R62.7 Adult failure to thrive; E11.9 Type 2 diabetes mellitus without complications; D63.8 Anemia in other chronic diseases classified elsewhere; Z82.49 Family history of ischemic heart disease and other diseases of the circulatory system; Z83.3 Family history of diabetes mellitus; Z90.710 Acquired absence of both cervix and uterus; Z86.73 Personal history of transient ischemic attack (TIA), and cerebral infarction without residual deficits; Y93.89 Activity, other specified; Y92.89 Other specified places as the place of occurrence of the external cause; Y99.8 Other external cause status; R29.6 Repeated falls; Z91.81 History of falling
CPT/HCPCS: 70450; 71045; 72125; 80048; 81001; 82962; 83605; 83690; 83880; 84484; 85025; 93005; 97167; 97530; 97535; 99285; J1644; 36415-L1; 36415-TC

== ENCOUNTER 2024-11-21 22:40 | Inpatient (IN) | payer MEDICARE, MEDICAID ==
[~2024-11-21] VITALS: Ht 154.9 cm; Wt 53.5 kg
[~2024-11-21 22:40] MED LIST changes: +ALBU2.5V39 NEB; +ATOR20TA PO; +CLOT30SO2 TP; -DOXY-354 PO; +HEPA500018 SQ; -IBUP-2853 PO; +INSU3INS3 SQ; +LEVO750T68 PO; +MULT-1303 PO; +PRED-554 PO; -[UNRECOGNIZED DRUG - CODE] TP
[2024-11-21 23:23] LABS: BASOPHILS % (AUTO) 0.8 % (0.0-2.0); EOSINOPHILS % (AUTO) 2.6 % (1.0-6.0); HEMATOCRIT 31.8 % (36-46); HEMOGLOBIN 10.4 g/dL (12.0-16.0); LYMPHOCYTES # (AUTO) 1.6 K/uL (1.0-4.8); LYMPHOCYTES % (AUTO) 23.8 % (22.0-44.0); MEAN CORPUSCULAR HEMOGLOBIN 28.4 pg (26.0-34.0); MEAN CORPUSCULAR HGB CONC 32.7 G/dL (31.0-37.0); MEAN CORPUSCULAR VOLUME 87 fL (80-100); MONOCYTES # (AUTO) 0.6 K/uL (0.1-1.0); MONOCYTES % (AUTO) 8.7 % (2.0-9.0); NEUTROPHILS # (AUTO) 4.3 K/uL (1.8-7.7); NEUTROPHILS % (AUTO) 64.1 % (40.0-70.0); PLATELET COUNT (AUTO) 225 K/uL (150-450); RED BLOOD CELL COUNT(AUTO) 3.65 MIL/uL (4.00-5.20); RED CELL DISTRIBUTION WIDTH 14.2 % (11.5-14.5); WHITE BLOOD COUNT (AUTO) 6.8 K/uL (4.5-11.0)
[2024-11-21 23:29] LABS: ANION GAP 6 mmol/L (8-16); CALCIUM, TOTAL 7.9 mg/dL (8.8-10.5); CARBON DIOXIDE 31 mmol/L (22-29); CHLORIDE 102 mmol/L (98-107); CREATININE 0.95 mg/dL (0.60-1.30); GLOMERULAR FILTR. RATE CALC 56 mL/min (>60); GLUCOSE,RANDOM 362 mg/dL (70-110); SODIUM SERUM 139 mmol/L (136-145); UREA NITROGEN, BLOOD 18 mg/dL (7-18)
[2024-11-21 23:33] LABS: PROTHROMBIN TIME 10.6 SEC (9.4-11.6)
[2024-11-21 23:39] LABS: ALANINE AMINOTRANSFERASE 13 U/L (12-78); ALBUMIN 2.7 g/dL (3.4-5.0); ALKALINE PHOSPHATASE 91 U/L (46-116); ASPARTATE AMINOTRANSFERASE 14 U/L (15-37); BILIRUBIN,TOTAL 0.3 mg/dL (0.1-1.0); CREATINE KINASE, TOTAL ONLY 50 U/L (26-192); TOTAL PROTEIN, SERUM 6.1 g/dL (6.4-8.2); TROPONIN I-HIGH SENSITIVITY 7 ng/L (<51)
[2024-11-21] MEDS ORDERED: DEXTROSE 50%-WATER 25 GM/50 ML SYRINGE IVP PRN (23:45)
[2024-11-21] MEDS ORDERED: BISACODYL 10 MG RECTAL RECTAL SUPPOSITORY PR PRN (23:45)
[2024-11-21 23:46] LABS: B-TYPE NATRIURETIC PEPTIDE 81 pg/mL (0-100)
[2024-11-22] MEDS: HEPARIN SODIUM,PORCINE 5,000 UNITS/ML VIAL SQ SCH
[2024-11-22 00:01] LABS: APPEARANCE,URINE CLEAR (CLEAR); BILIRUBIN,URINE NEGATIVE (NEGATIVE); COLOR,URINE LIGHT YELLOW (YELLOW); GLUCOSE, URINE (UA) >=1000 mg/dL (NEGATIVE); KETONES,URINE NEGATIVE (NEGATIVE); LEUKOCYTE ESTERASE ,URINE NEGATIVE (NEGATIVE); NITRATE,URINE NEGATIVE (NEGATIVE); OCCULT BLOOD,URINE NEGATIVE (NEGATIVE); PROTEIN,URINE TRACE mg/dL (NEGATIVE); SPECIFIC GRAVITIY, URINE 1.023 (1.003-1.030); UROBILINOGEN,URINE <=1.0 mg/dL (<=1.0)
[2024-11-22 00:21] LABS: BACTERIA,URINE Few /HPF (None Seen); RBC,URINE 0-2 /HPF (0-2); WBC,URINE 0-2 /HPF (0-5); YEAST,URINE Rare /HPF (None Seen)
[2024-11-22] MEDS: INSULIN LISPRO 100 UNITS/ML SQ PRN (00:22)
[2024-11-22] MEDS: ACETAMINOPHEN 325 MG TABLET PO PRN (00:22)
[2024-11-22] MEDS: PERTUSS(ACELL),DIPH,TET/PF 0.5 ML SYRINGE [ADULT] IM. ONE (00:24)
[2024-11-22 05:44] VITALS: BP 140/56; PULSE 63; RESP 19; TEMP 97.7; O2SAT 100
[2024-11-22 05:56] LABS: GLUCOMETER DEV NAME(LOC) 5N.1D; GLUCOSE,POINT OF CARE 112 MG/DL (70-110)
[2024-11-22] MEDS: PANTOPRAZOLE SODIUM 40 MG/VIAL IVP SCH (08:17)
[2024-11-22 09:06] VITALS: BP 117/50; PULSE 69; RESP 16; TEMP 98.1; O2SAT 97
[2024-11-22 12:28] VITALS: BP 119/77; PULSE 64; RESP 18; TEMP 97.9; O2SAT 99
[2024-11-22 16:17] VITALS: BP 133/65; PULSE 60; RESP 17; TEMP 97.5; O2SAT 99
[2024-11-22 18:06] LABS: GLUCOMETER DEV NAME(LOC) 5N.2C; GLUCOSE,POINT OF CARE 125 MG/DL (70-110)
[2024-11-22 18:06] LABS: GLUCOMETER DEV NAME(LOC) 5N.1D; GLUCOSE,POINT OF CARE 247 MG/DL (70-110)
[2024-11-22 20:00] VITALS: BP 112/45; PULSE 71; RESP 17; TEMP 97.4; O2SAT 100
[2024-11-22 20:40] LABS: GLUCOMETER DEV NAME(LOC) 5N.2C; GLUCOSE,POINT OF CARE 204 MG/DL (70-110)
[2024-11-23 00:08] VITALS: BP 118/51; PULSE 69; RESP 17; TEMP 98; O2SAT 100
[2024-11-23 04:14] VITALS: BP 105/53; PULSE 71; RESP 17; TEMP 97.7; O2SAT 100
[2024-11-23 05:46] LABS: GLUCOMETER DEV NAME(LOC) 5N.1D; GLUCOSE,POINT OF CARE 151 MG/DL (70-110)
[2024-11-23] MEDS: ATORVASTATIN CALCIUM 20 MG TABLET PO SCH (07:44)
[2024-11-23] MEDS: ASPIRIN 81 MG CHEWABLE TABLET PO SCH (07:44)
[2024-11-23 08:33] VITALS: BP 109/56; PULSE 62; RESP 18; TEMP 97.6; O2SAT 99
[2024-11-23] MEDS ORDERED: DENTURE ADHESIVE 68 GM CREAM DT PRN (09:00)
[2024-11-23 11:30] VITALS: BP 113/57; PULSE 60; RESP 19; TEMP 97.8; O2SAT 98
[2024-11-23] MEDS: *CLINICAL-LEVOFLOXACIN IVPB DOSING CLINICAL ONE (12:40)
[2024-11-23] MEDS: LEVOFLOXACIN 750 MG/D5% WATER 150 ML IV SCH (13:47)
[2024-11-23 15:41] VITALS: BP 110/58; PULSE 64; RESP 18; TEMP 98; O2SAT 98
[2024-11-23 15:56] LABS: GLUCOMETER DEV NAME(LOC) 5N.2C; GLUCOSE,POINT OF CARE 184 MG/DL (70-110)
[2024-11-23 18:06] LABS: GLUCOMETER DEV NAME(LOC) 5N.1D; GLUCOSE,POINT OF CARE 264 MG/DL (70-110)
[2024-11-23 19:38] VITALS: BP 97/48; PULSE 86; RESP 18; TEMP 98.6; O2SAT 100
[2024-11-24 00:29] VITALS: BP 133/58; PULSE 67; RESP 16; TEMP 97.9; O2SAT 100
[2024-11-24 03:16] LABS: GLUCOMETER DEV NAME(LOC) 5N.2C; GLUCOSE,POINT OF CARE 114 MG/DL (70-110)
[2024-11-24 04:13] VITALS: BP 123/57; PULSE 67; RESP 15; TEMP 98.2; O2SAT 100
[2024-11-24 07:01] LABS: GLUCOMETER DEV NAME(LOC) 5N.2C; GLUCOSE,POINT OF CARE 154 MG/DL (70-110)
[2024-11-24 07:30] LABS: ANION GAP 1 mmol/L (8-16); BASOPHILS % (AUTO) 0.6 % (0.0-2.0); CALCIUM, TOTAL 7.8 mg/dL (8.8-10.5); CARBON DIOXIDE 32 mmol/L (22-29); CHLORIDE 107 mmol/L (98-107); CREATININE 0.84 mg/dL (0.60-1.30); EOSINOPHILS % (AUTO) 1.9 % (1.0-6.0); GLOMERULAR FILTR. RATE CALC > 60 mL/min (>60); GLUCOSE,RANDOM 165 mg/dL (70-110); HEMOGLOBIN 10.5 g/dL (12.0-16.0); LYMPHOCYTES # (AUTO) 1.7 K/uL (1.0-4.8); LYMPHOCYTES % (AUTO) 28.8 % (22.0-44.0); MEAN CORPUSCULAR HEMOGLOBIN 29.2 pg (26.0-34.0); MEAN CORPUSCULAR HGB CONC 33.7 G/dL (31.0-37.0); MEAN CORPUSCULAR VOLUME 86 fL (80-100); MONOCYTES # (AUTO) 0.4 K/uL (0.1-1.0); MONOCYTES % (AUTO) 6.1 % (2.0-9.0); NEUTROPHILS # (AUTO) 3.7 K/uL (1.8-7.7); NEUTROPHILS % (AUTO) 62.6 % (40.0-70.0); PLATELET COUNT (AUTO) 210 K/uL (150-450); POTASSIUM 3.8 mmol/L (3.5-5.1); RED BLOOD CELL COUNT(AUTO) 3.59 MIL/uL (4.00-5.20); RED CELL DISTRIBUTION WIDTH 14.3 % (11.5-14.5); SODIUM SERUM 140 mmol/L (136-145); UREA NITROGEN, BLOOD 13 mg/dL (7-18); WHITE BLOOD COUNT (AUTO) 5.9 K/uL (4.5-11.0)
[2024-11-24 08:05] VITALS: BP 112/48; PULSE 65; RESP 17; TEMP 98; O2SAT 98
[2024-11-24 11:20] VITALS: BP 110/55; PULSE 69; RESP 19; TEMP 98.2; O2SAT 100
[2024-11-24 15:06] VITALS: BP 134/61; PULSE 69; RESP 18; TEMP 97.8; O2SAT 98
[2024-11-24 19:11] LABS: GLUCOMETER DEV NAME(LOC) 5S.2D; GLUCOSE,POINT OF CARE 204 MG/DL (70-110)
[2024-11-24 21:15] VITALS: BP 125/103; PULSE 72; RESP 18; O2SAT 100
[2024-11-25 00:26] LABS: GLUCOMETER DEV NAME(LOC) 5N.2C; GLUCOSE,POINT OF CARE 206 MG/DL (70-110)
[2024-11-25 00:37] VITALS: BP 107/53; PULSE 69; RESP 19; TEMP 97.1; O2SAT 100
[2024-11-25 04:22] VITALS: BP 119/55; PULSE 67; RESP 19; O2SAT 100
[2024-11-25 06:40] LABS: BASOPHILS % (AUTO) 0.6 % (0.0-2.0); EOSINOPHILS % (AUTO) 2.5 % (1.0-6.0); HEMATOCRIT 31.2 % (36-46); HEMOGLOBIN 10.5 g/dL (12.0-16.0); LYMPHOCYTES # (AUTO) 1.5 K/uL (1.0-4.8); LYMPHOCYTES % (AUTO) 28.4 % (22.0-44.0); MEAN CORPUSCULAR HGB CONC 33.7 G/dL (31.0-37.0); MEAN CORPUSCULAR VOLUME 86 fL (80-100); MONOCYTES # (AUTO) 0.4 K/uL (0.1-1.0); MONOCYTES % (AUTO) 6.9 % (2.0-9.0); NEUTROPHILS # (AUTO) 3.3 K/uL (1.8-7.7); NEUTROPHILS % (AUTO) 61.6 % (40.0-70.0); PLATELET COUNT (AUTO) 222 K/uL (150-450); RED BLOOD CELL COUNT(AUTO) 3.63 MIL/uL (4.00-5.20); WHITE BLOOD COUNT (AUTO) 5.4 K/uL (4.5-11.0)
[2024-11-25 06:47] LABS: ANION GAP 5 mmol/L (8-16); CALCIUM, TOTAL 7.8 mg/dL (8.8-10.5); CARBON DIOXIDE 31 mmol/L (22-29); CHLORIDE 106 mmol/L (98-107); CREATININE 0.74 mg/dL (0.60-1.30); GLOMERULAR FILTR. RATE CALC > 60 mL/min (>60); GLUCOSE,RANDOM 155 mg/dL (70-110); SODIUM SERUM 142 mmol/L (136-145); UREA NITROGEN, BLOOD 14 mg/dL (7-18)
[2024-11-25 07:45] LABS: GLUCOMETER DEV NAME(LOC) 5N.2C; GLUCOSE,POINT OF CARE 142 MG/DL (70-110)
[2024-11-25 08:00] VITALS: BP 122/52; PULSE 60; RESP 18; TEMP 98.2; O2SAT 100
[2024-11-25 12:08] VITALS: BP 115/47; PULSE 57; RESP 19; TEMP 97.8; O2SAT 100
[2024-11-25 12:36] LABS: GLUCOMETER DEV NAME(LOC) 5S.2D; GLUCOSE,POINT OF CARE 175 MG/DL (70-110)
[2024-11-25 16:00] VITALS: BP 134/58; PULSE 67; RESP 18; TEMP 97.9; O2SAT 100
[2024-11-25] MEDS ORDERED: LEVO750T68 PO (16:54)
[2024-11-25 20:00] VITALS: BP 116/51; PULSE 71; RESP 16; TEMP 97.7; O2SAT 96
[2024-11-25 20:31] LABS: GLUCOMETER DEV NAME(LOC) 5N.1D; GLUCOSE,POINT OF CARE 192 MG/DL (70-110)
[2024-11-26 00:30] VITALS: BP 108/49; PULSE 60; RESP 15; TEMP 97.5; O2SAT 98
[2024-11-26 04:30] VITALS: BP 120/55; PULSE 68; RESP 16; TEMP 97.8; O2SAT 96
[2024-11-26 05:46] LABS: GLUCOMETER DEV NAME(LOC) 5S.2D; GLUCOSE,POINT OF CARE 239 MG/DL (70-110)
[2024-11-26 08:09] VITALS: BP 113/49; PULSE 73; RESP 17; TEMP 97.7; O2SAT 98
[2024-11-26 11:11] VITALS: BP 135/58; PULSE 60; RESP 17; TEMP 97.9; O2SAT 100
[2024-11-26 14:11] LABS: GLUCOMETER DEV NAME(LOC) 5N.1D; GLUCOSE,POINT OF CARE 129 MG/DL (70-110)
[2024-11-26 14:11] LABS: GLUCOMETER DEV NAME(LOC) 5S.2D; GLUCOSE,POINT OF CARE 194 MG/DL (70-110)
[2024-12-02] MEDS ORDERED: PANT-31 PO (15:46)
== END 2024-11-26 13:20 | disposition home or self-care (01) | DRG 641 ==
LOC: EMS 22:42 → EDH 23:45 → 5S 11-22 03:30
PROVIDERS: ADMIT Internal Medicine; ATTEND Internal Medicine
DX: E86.0 Dehydration (principal); I48.20 Chronic atrial fibrillation, unspecified; R55 Syncope and collapse; S00.81XA Abrasion of other part of head, initial encounter; E78.00 Pure hypercholesterolemia, unspecified; F03.90 Unspecified dementia, unspecified severity, without behavioral disturbance, psychotic disturbance, mood disturbance, and anxiety; I11.0 Hypertensive heart disease with heart failure; I25.10 Atherosclerotic heart disease of native coronary artery without angina pectoris; I50.9 Heart failure, unspecified; J44.89 Other specified chronic obstructive pulmonary disease; R29.6 Repeated falls; R53.81 Other malaise; R62.7 Adult failure to thrive; Z79.02 Long term (current) use of antithrombotics/antiplatelets; Z82.49 Family history of ischemic heart disease and other diseases of the circulatory system; Z83.3 Family history of diabetes mellitus; Z66 Do not resuscitate; Z86.73 Personal history of transient ischemic attack (TIA), and cerebral infarction without residual deficits; Z90.710 Acquired absence of both cervix and uterus; Z53.20 Procedure and treatment not carried out because of patient's decision for unspecified reasons; X58.XXXA Exposure to other specified factors, initial encounter; Y93.89 Activity, other specified; Y92.89 Other specified places as the place of occurrence of the external cause; Y99.8 Other external cause status
CPT/HCPCS: 70450; 71045; 72125; 80048; 80076; 81001; 82550; 82962; 83880; 84484; 85025; 85610; 85730; 87081; 90715; 92610; 93005; 97110; 97162; 97530; 99285; G0378; J1644; J1815; J1956; J2470; 36415-L1; 36415-TC

== ENCOUNTER 2024-12-22 12:07 | Emergency (ER) | payer MEDICARE, MEDICAID ==
[~2024-12-22] VITALS: Ht 152.4 cm; Wt 45.5 kg
[~2024-12-22 12:07] MED LIST changes: -FAMO20 PO; +PANT-31 PO; -PRED-554 PO
[2024-12-22 12:50] LABS: GLUCOMETER DEV NAME(LOC) ERT.6; GLUCOSE,POINT OF CARE 109 MG/DL (70-110)
[2024-12-22 13:18] LABS: BASOPHILS % (AUTO) 0.5 % (0.0-2.0); HEMATOCRIT 28.9 % (36-46); HEMOGLOBIN 9.5 g/dL (12.0-16.0); LYMPHOCYTES # (AUTO) 1.2 K/uL (1.0-4.8); LYMPHOCYTES % (AUTO) 22.5 % (22.0-44.0); MEAN CORPUSCULAR HEMOGLOBIN 28.5 pg (26.0-34.0); MEAN CORPUSCULAR VOLUME 87 fL (80-100); MONOCYTES # (AUTO) 0.4 K/uL (0.1-1.0); MONOCYTES % (AUTO) 6.5 % (2.0-9.0); NEUTROPHILS # (AUTO) 3.8 K/uL (1.8-7.7); NEUTROPHILS % (AUTO) 69.5 % (40.0-70.0); PLATELET COUNT (AUTO) 184 K/uL (150-450); RED BLOOD CELL COUNT(AUTO) 3.34 MIL/uL (4.00-5.20); RED CELL DISTRIBUTION WIDTH 14.6 % (11.5-14.5); WHITE BLOOD COUNT (AUTO) 5.5 K/uL (4.5-11.0)
[2024-12-22 13:32] LABS: ANION GAP 5 mmol/L (8-16); CALCIUM, TOTAL 8.7 mg/dL (8.8-10.5); CARBON DIOXIDE 31 mmol/L (22-29); CHLORIDE 105 mmol/L (98-107); CREATININE 0.88 mg/dL (0.60-1.30); GLOMERULAR FILTR. RATE CALC > 60 mL/min (>60); GLUCOSE,RANDOM 178 mg/dL (70-110); POTASSIUM 3.9 mmol/L (3.5-5.1); SODIUM SERUM 141 mmol/L (136-145); UREA NITROGEN, BLOOD 21 mg/dL (7-18)
[2024-12-22] MEDS ORDERED: SODIUM CHLORIDE 0.9% 1,000 ML IV ONE (15:15)
[2024-12-22 16:25] VITALS: BP 121/86; PULSE 71; RESP 16; TEMP 98.6; O2SAT 96
== END 2024-12-22 16:41 | disposition home or self-care (01) ==
LOC: EMS 12:12
DX: S09.90XA Unspecified injury of head, initial encounter (principal); I11.0 Hypertensive heart disease with heart failure; I25.10 Atherosclerotic heart disease of native coronary artery without angina pectoris; I50.9 Heart failure, unspecified; E78.00 Pure hypercholesterolemia, unspecified; J45.909 Unspecified asthma, uncomplicated; Z79.02 Long term (current) use of antithrombotics/antiplatelets; Z79.4 Long term (current) use of insulin; Z79.82 Long term (current) use of aspirin; Z90.710 Acquired absence of both cervix and uterus; Z90.49 Acquired absence of other specified parts of digestive tract; Z87.440 Personal history of urinary (tract) infections; Z79.899 Other long term (current) drug therapy; W01.0XXA Fall on same level from slipping, tripping and stumbling without subsequent striking against object, initial encounter; Y93.01 Activity, walking, marching and hiking; Y92.89 Other specified places as the place of occurrence of the external cause; Y99.8 Other external cause status
CPT/HCPCS: 70450; 80048; 82962; 85025; 99284

== ENCOUNTER 2025-07-20 09:02 | Inpatient (IN) | payer MEDICARE, MEDICAID ==
[~2025-07-20] VITALS: Ht 153 cm; Wt 53.2 kg
[~2025-07-20 09:02] MED LIST changes: -HEPA500018 SQ; +HEPA50009 SQ
[2025-07-20 10:17] LABS: CALCIUM, TOTAL 8.3 mg/dL (8.8-10.5); CREATININE 0.74 mg/dL (0.60-1.30); GLOMERULAR FILTR. RATE CALC > 60 mL/min (>60); GLUCOSE,RANDOM 142 mg/dL (70-110); SODIUM SERUM 142 mmol/L (136-145); UREA NITROGEN, BLOOD 17 mg/dL (7-18)
[2025-07-20 10:20] LABS: PLATELET COUNT (AUTO) 198 K/uL (150-450); RED BLOOD CELL COUNT(AUTO) 3.99 MIL/uL (4.00-5.20); RED CELL DISTRIBUTION WIDTH 14.5 % (11.5-14.5); WHITE BLOOD COUNT (AUTO) 6.3 K/uL (4.5-11.0)
[2025-07-20 10:22] LABS: TROPONIN I-HIGH SENSITIVITY 9 ng/L (<51)
[2025-07-20 10:25] LABS: LACTIC ACID 0.9 mmol/L (0.4-2.0)
[2025-07-20] MEDS: SODIUM CHLORIDE 0.9% 1,550 ML IV ONE (10:41)
[2025-07-20 10:44] LABS: APPEARANCE,URINE CLEAR (CLEAR); GLUCOSE, URINE (UA) NEGATIVE (NEGATIVE); LEUKOCYTE ESTERASE ,URINE NEGATIVE (NEGATIVE); NITRATE,URINE NEGATIVE (NEGATIVE); OCCULT BLOOD,URINE NEGATIVE (NEGATIVE); SPECIFIC GRAVITIY, URINE 1.008 (1.003-1.030)
[2025-07-20 10:55] LABS: BAND NEUTROPHILS % (MANUAL) 1 % (0-5); LYMPHOCYTES % (MANUAL) 26 % (22-44); MONOCYTES % (MANUAL) 2 % (2-9); SEGMENTED NEUTROPHILS % 71 % (40-70)
[2025-07-20 11:22] LABS: SQUAMOUS EPITHELIAL CELL,UR Rare /LPF (None Seen)
[2025-07-20] MEDS ORDERED: INSU100V SQ (13:49)
[2025-07-20 15:52] VITALS: BP 134/63; PULSE 68; RESP 16; TEMP 97.5; O2SAT 100
[2025-07-20] MEDS ORDERED: IPRATROPIUM BROMIDE 0.5 MG/2.5 ML NEB SOLUTION NEB PRN (17:00)
[2025-07-20] MEDS ORDERED: ACETAMINOPHEN 325 MG TABLET PO PRN (17:00)
[2025-07-20] MEDS ORDERED: ALBUTEROL SULFATE 2.5 MG/0.5 ML NEB SOLUTION NEB PRN (17:00)
[2025-07-20] MEDS ORDERED: MAGNESIUM HYDROXIDE SUSPENSION 30 ML UDCUP PO PRN (17:00)
[2025-07-20] MEDS ORDERED: ONDANSETRON HCL 4 MG/2 ML VIAL IVP PRN (17:00)
[2025-07-20] MEDS ORDERED: ZOLPIDEM TARTRATE 5 MG TABLET PO PRN (17:00)
[2025-07-20] MEDS ORDERED: MORPHINE SULFATE 4 MG/ML SYRINGE IVP PRN (17:00)
[2025-07-20] MEDS ORDERED: BISACODYL 10 MG RECTAL RECTAL SUPPOSITORY PR PRN (17:00)
[2025-07-20] MEDS ORDERED: SODIUM CHLORIDE 0.9% 250 ML IV ONE (18:23)
[2025-07-20] MEDS: VANCOMYCIN 1GM/WATER(PEG/NADA) 200 ML IV ONE (18:29)
[2025-07-20 20:22] VITALS: BP 126/62; PULSE 70; RESP 18; TEMP 97.5; O2SAT 98
[2025-07-20] MEDS: PIPERACILLIN SODIUM/TAZOBACTAM 2.25 GM in DEXTROSE 5%-WATER 50 ML IV SCH (20:44)
[2025-07-20] MEDS: HEPARIN SODIUM,PORCINE 5,000 UNITS/ML VIAL SQ SCH (23:47)
[2025-07-21] VITALS (7 sets, daily range): BP systolic 110–125; BP diastolic 49–69; PULSE 65–85; RESP 16–18; TEMP 97.7–98.3; O2SAT 96–100
[2025-07-21 06:27] LABS: CALCIUM, TOTAL 7.7 mg/dL (8.8-10.5); CREATININE 0.64 mg/dL (0.60-1.30); GLOMERULAR FILTR. RATE CALC > 60 mL/min (>60); GLUCOSE,RANDOM 114 mg/dL (70-110); SODIUM SERUM 143 mmol/L (136-145); UREA NITROGEN, BLOOD 11 mg/dL (7-18)
[2025-07-21] MEDS: VANCOMYCIN 1GM/WATER(PEG/NADA) 200 ML IV SCH (09:12)
[2025-07-21] MEDS: PANTOPRAZOLE SODIUM 40 MG DR TABLET PO SCH (09:15)
[2025-07-21] MEDS: PIPERACILLIN/TAZO 3.375 GM/D5W 50 ML IV SCH (13:08)
[2025-07-22 03:14] VITALS: BP 122/48; PULSE 66; RESP 18; TEMP 98.1; O2SAT 100
[2025-07-22 06:29] LABS: PLATELET COUNT (AUTO) 169 K/uL (150-450); RED BLOOD CELL COUNT(AUTO) 3.47 MIL/uL (4.00-5.20); RED CELL DISTRIBUTION WIDTH 14.4 % (11.5-14.5); WHITE BLOOD COUNT (AUTO) 5.4 K/uL (4.5-11.0)
[2025-07-22 07:06] LABS: ASPARTATE AMINOTRANSFERASE 19 U/L (15-37); CALCIUM, TOTAL 7.8 mg/dL (8.8-10.5); CREATININE 0.79 mg/dL (0.60-1.30); GLOMERULAR FILTR. RATE CALC > 60 mL/min (>60); GLUCOSE,RANDOM 117 mg/dL (70-110); SODIUM SERUM 142 mmol/L (136-145); TOTAL PROTEIN, SERUM 5.8 g/dL (6.4-8.2); UREA NITROGEN, BLOOD 14 mg/dL (7-18)
[2025-07-22 08:21] VITALS: BP 130/49; PULSE 66; RESP 17; TEMP 97.7; O2SAT 98
[2025-07-22] MEDS ORDERED: DOXY-354 PO (09:08)
[2025-07-22 12:15] VITALS: BP 131/56; PULSE 53; RESP 17; TEMP 97.3; O2SAT 99
[2025-07-22 15:48] VITALS: BP 107/55; PULSE 64; RESP 17; TEMP 97.7; O2SAT 97
[2025-07-22 20:03] VITALS: BP 134/57; PULSE 66; RESP 17; TEMP 97.5; O2SAT 100
[2025-07-22] MEDS: HYDROCODONE/ACETAMINOPHEN 5-325 MG TABLET PO PRN (21:25)
[2025-07-23 00:10] VITALS: BP 126/59; PULSE 60; RESP 16; TEMP 97.8; O2SAT 97
[2025-07-23 03:52] VITALS: BP 122/58; PULSE 62; RESP 16; TEMP 97.5; O2SAT 98
[2025-07-23] MEDS ORDERED: SODIUM CHLORIDE 0.9% 250 ML IV ONE (06:38)
[2025-07-23 07:42] LABS: CALCIUM, TOTAL 7.7 mg/dL (8.8-10.5); CREATININE 0.89 mg/dL (0.60-1.30); GLOMERULAR FILTR. RATE CALC 60.0 mL/min (>60); GLUCOSE,RANDOM 108.0 mg/dL (70-110); SODIUM SERUM 143.0 mmol/L (136-145); UREA NITROGEN, BLOOD 15.0 mg/dL (7-18)
[2025-07-23 08:24] VITALS: BP 126/60; PULSE 58; RESP 16; TEMP 97.3; O2SAT 100
[2025-07-23 11:28] VITALS: BP 124/63; PULSE 62; RESP 16; TEMP 98.1; O2SAT 100
[2025-07-23 16:20] VITALS: BP 142/75; PULSE 70; RESP 16; TEMP 98.1; O2SAT 100
== END 2025-07-23 17:45 | disposition home or self-care (01) | DRG 602 ==
LOC: EMS 09:02 → EDH 11:02 → 5N 15:18
PROVIDERS: ADMIT Hospitalist; ATTEND Hospitalist
DX: L03.116 Cellulitis of left lower limb (principal); E43 Unspecified severe protein-calorie malnutrition; R53.2 Functional quadriplegia; R64 Cachexia; Z66 Do not resuscitate; E11.9 Type 2 diabetes mellitus without complications; E78.00 Pure hypercholesterolemia, unspecified; F03.90 Unspecified dementia, unspecified severity, without behavioral disturbance, psychotic disturbance, mood disturbance, and anxiety; I11.0 Hypertensive heart disease with heart failure; K21.9 Gastro-esophageal reflux disease without esophagitis; I25.10 Atherosclerotic heart disease of native coronary artery without angina pectoris; I48.91 Unspecified atrial fibrillation; R62.7 Adult failure to thrive; I50.9 Heart failure, unspecified; J45.909 Unspecified asthma, uncomplicated; R29.6 Repeated falls; Z82.49 Family history of ischemic heart disease and other diseases of the circulatory system; Z83.3 Family history of diabetes mellitus; Z86.73 Personal history of transient ischemic attack (TIA), and cerebral infarction without residual deficits; Z90.710 Acquired absence of both cervix and uterus; Z68.22 Body mass index [BMI] 22.0-22.9, adult
CPT/HCPCS: 71045; 80048; 80053; 80202; 81001; 83036; 83605; 84484; 85025; 92526; 92610; 93005; 97162; 97530; 99285; J1644; J2543; J7030; J7050; J7060; 36415-L1; 36415-TC

== ENCOUNTER 2025-07-26 10:11 | Inpatient (IN) | payer MEDICARE, MEDICAID ==
[~2025-07-26] VITALS: Ht 162.6 cm; Wt 60.2 kg
[~2025-07-26 10:11] MED LIST changes: -ACET-2247 PO; -ALBU2.5V39 NEB; -ASPI-1450 PO; -ATOR20TA PO; -CLOT30SO2 TP; -DOCU-385 PO; +DOXY-354 PO; -HEPA50009 SQ; -INSU100I15 SQ; +INSU100V SQ; -INSU3INS3 SQ; -LEVO750T68 PO; -MULT-1303 PO; -PANT-31 PO
[2025-07-26 10:58] LABS: PLATELET COUNT (AUTO) 181 K/uL (150-450); RED BLOOD CELL COUNT(AUTO) 3.41 MIL/uL (4.00-5.20); RED CELL DISTRIBUTION WIDTH 14.7 % (11.5-14.5); WHITE BLOOD COUNT (AUTO) 4.2 K/uL (4.5-11.0)
[2025-07-26 11:02] LABS: CALCIUM, TOTAL 7.4 mg/dL (8.8-10.5); CREATININE 0.65 mg/dL (0.60-1.30); GLOMERULAR FILTR. RATE CALC > 60 mL/min (>60); GLUCOSE,RANDOM 106 mg/dL (70-110); SODIUM SERUM 142 mmol/L (136-145); UREA NITROGEN, BLOOD 16 mg/dL (7-18)
[2025-07-26 11:08] LABS: ASPARTATE AMINOTRANSFERASE 40 U/L (15-37); CHOL/HDL RATIO 3.6 (3.9-5.7); LDL CHOL (CALC.) 70 mg/dL (0-130); TOTAL PROTEIN, SERUM 5.2 g/dL (6.4-8.2); TROPONIN I-HIGH SENSITIVITY 7 ng/L (<51)
[2025-07-26 13:25] LABS: GLUCOMETER DEV NAME(LOC) ERT.7; GLUCOSE,POINT OF CARE 106 MG/DL (70-110)
[2025-07-26] MEDS ORDERED: BISACODYL 10 MG RECTAL RECTAL SUPPOSITORY PR PRN (14:00)
[2025-07-26] MEDS ORDERED: ACETAMINOPHEN 325 MG TABLET PO PRN (14:00)
[2025-07-26] MEDS ORDERED: ZOLPIDEM TARTRATE 5 MG TABLET PO PRN (14:00)
[2025-07-26] MEDS ORDERED: MAGNESIUM HYDROXIDE SUSPENSION 30 ML UDCUP PO PRN (14:00)
[2025-07-26] MEDS ORDERED: ONDANSETRON HCL 4 MG/2 ML VIAL IVP PRN (14:00)
[2025-07-26] MEDS: SODIUM CHLORIDE 0.9% 1,000 ML IV ONE (14:07)
[2025-07-26] MEDS ORDERED: HEPARIN SODIUM,PORCINE 5,000 UNITS/ML VIAL SQ SCH (16:00)
[2025-07-26 16:18] VITALS: BP 141/57; PULSE 67; RESP 18; TEMP 97.9; O2SAT 97
[2025-07-26 20:53] VITALS: BP 127/68; PULSE 67; RESP 17; TEMP 97.7; O2SAT 98
[2025-07-26] MEDS: DOCUSATE SODIUM 100 MG CAPSULE PO SCH (21:00)
[2025-07-26 21:50] LABS: AMPHET/METH SCREEN,URINE NEGATIVE (NEGATIVE); BARBITURATE SCREEN, URINE NEGATIVE (NEGATIVE); CANNABINOID SCREEN,URINE NEGATIVE (NEGATIVE); COCAINE SCREEN,URINE NEGATIVE (NEGATIVE); METHADONE SCREEN, URINE NEGATIVE (NEGATIVE)
[2025-07-26 21:52] LABS: ALCOHOL, URINE DRUG SCREEN NEGATIVE (NEGATIVE)
[2025-07-26 21:55] LABS: APPEARANCE,URINE CLEAR (CLEAR); GLUCOSE, URINE (UA) NEGATIVE (NEGATIVE); LEUKOCYTE ESTERASE ,URINE NEGATIVE (NEGATIVE); NITRATE,URINE NEGATIVE (NEGATIVE); OCCULT BLOOD,URINE NEGATIVE (NEGATIVE); PH,URINE DRUG SCREEN 7.5 (5.0-8.0)
[2025-07-26 21:56] LABS: SPECIFIC GRAVITIY, URINE 1.030 (1.003-1.030)
[2025-07-26 22:18] LABS: SQUAMOUS EPITHELIAL CELL,UR Few /LPF (None Seen)
[2025-07-27 00:21] VITALS: BP 123/55; PULSE 58; RESP 17; TEMP 98.2; O2SAT 98
[2025-07-27 03:30] VITALS: BP 128/55; PULSE 63; RESP 17; TEMP 97.9; O2SAT 99
[2025-07-27] MEDS ORDERED: LORazepam 2 MG/ML VIAL IM PRN (06:00)
[2025-07-27 06:45] LABS: CALCIUM, TOTAL 8.0 mg/dL (8.8-10.5); CREATININE 0.69 mg/dL (0.60-1.30); GLOMERULAR FILTR. RATE CALC > 60 mL/min (>60); GLUCOSE,RANDOM 111 mg/dL (70-110); SODIUM SERUM 137 mmol/L (136-145); UREA NITROGEN, BLOOD 12 mg/dL (7-18)
[2025-07-27 07:40] LABS: PLATELET COUNT (AUTO) 222 K/uL (150-450); RED BLOOD CELL COUNT(AUTO) 3.75 MIL/uL (4.00-5.20); RED CELL DISTRIBUTION WIDTH 14.6 % (11.5-14.5); WHITE BLOOD COUNT (AUTO) 4.9 K/uL (4.5-11.0)
[2025-07-27 07:55] VITALS: BP 125/57; PULSE 62; RESP 18; TEMP 97.7; O2SAT 98
[2025-07-27] MEDS: ASPIRIN 81 MG CHEWABLE TABLET PO SCH (09:49)
[2025-07-27] MEDS: PANTOPRAZOLE SODIUM 40 MG DR TABLET PO SCH (09:49)
[2025-07-27 11:05] VITALS: BP 131/61; PULSE 58; RESP 18; TEMP 97.7; O2SAT 100
[2025-07-27 15:42] VITALS: BP 129/51; PULSE 68; RESP 19; TEMP 98; O2SAT 97
[2025-07-27 20:40] VITALS: BP 120/54; PULSE 78; RESP 18; TEMP 97.9; O2SAT 96
[2025-07-28] VITALS (7 sets, daily range): BP systolic 99–134; BP diastolic 47–59; PULSE 54–88; RESP 14–19; TEMP 97.5–98.8; O2SAT 98–100
[2025-07-28 06:49] LABS: PLATELET COUNT (AUTO) 210 K/uL (150-450); RED BLOOD CELL COUNT(AUTO) 3.76 MIL/uL (4.00-5.20); RED CELL DISTRIBUTION WIDTH 14.4 % (11.5-14.5); WHITE BLOOD COUNT (AUTO) 5.1 K/uL (4.5-11.0)
[2025-07-28 07:40] LABS: CALCIUM, TOTAL 8.0 mg/dL (8.8-10.5); CREATININE 0.59 mg/dL (0.60-1.30); GLOMERULAR FILTR. RATE CALC > 60 mL/min (>60); GLUCOSE,RANDOM 121 mg/dL (70-110); SODIUM SERUM 138 mmol/L (136-145); UREA NITROGEN, BLOOD 13 mg/dL (7-18)
[2025-07-28] MEDS ORDERED: LORazepam 2 MG/ML VIAL IVP ONE (10:45)
[2025-07-28] MEDS: MORPHINE SULFATE 4 MG/ML SYRINGE IVP PRN (15:53)
[2025-07-28] MEDS: HYDROCODONE/ACETAMINOPHEN 5-325 MG TABLET PO PRN (16:16)
[2025-07-29 00:18] VITALS: BP 128/52; PULSE 78; RESP 17; TEMP 98.4; O2SAT 98
[2025-07-29] MEDS: ETHYL ALCOHOL 62% ANTISEPTIC NASAL SANITIZER 0.6 ML AMPUL NASAL SCH (02:05)
[2025-07-29 03:36] VITALS: BP 119/55; PULSE 64; RESP 18; TEMP 98.1; O2SAT 100
[2025-07-29 06:21] LABS: PLATELET COUNT (AUTO) 229 K/uL (150-450); RED BLOOD CELL COUNT(AUTO) 3.72 MIL/uL (4.00-5.20); RED CELL DISTRIBUTION WIDTH 15.0 % (11.5-14.5); WHITE BLOOD COUNT (AUTO) 6.5 K/uL (4.5-11.0)
[2025-07-29 06:24] LABS: CALCIUM, TOTAL 7.9 mg/dL (8.8-10.5); CREATININE 0.82 mg/dL (0.60-1.30); GLOMERULAR FILTR. RATE CALC > 60 mL/min (>60); GLUCOSE,RANDOM 120 mg/dL (70-110); SODIUM SERUM 138 mmol/L (136-145); UREA NITROGEN, BLOOD 26 mg/dL (7-18)
[2025-07-29 07:59] VITALS: BP 134/61; PULSE 59; RESP 16; TEMP 98.1; O2SAT 100
[2025-07-29 11:27] VITALS: BP 106/51; PULSE 69; RESP 16; TEMP 98.1; O2SAT 100
== END 2025-07-29 14:10 | DRG 70 ==
LOC: EMS 10:14 → EDH 13:50 → 5N 15:38
PROVIDERS: ADMIT Internal Medicine; ATTEND Internal Medicine
DX: G93.41 Metabolic encephalopathy (principal); E43 Unspecified severe protein-calorie malnutrition; L03.116 Cellulitis of left lower limb; K21.9 Gastro-esophageal reflux disease without esophagitis; E11.9 Type 2 diabetes mellitus without complications; E78.5 Hyperlipidemia, unspecified; Z86.73 Personal history of transient ischemic attack (TIA), and cerebral infarction without residual deficits; Z90.710 Acquired absence of both cervix and uterus; I11.0 Hypertensive heart disease with heart failure; I25.10 Atherosclerotic heart disease of native coronary artery without angina pectoris; R47.81 Slurred speech; I48.0 Paroxysmal atrial fibrillation; Z79.82 Long term (current) use of aspirin; Z68.22 Body mass index [BMI] 22.0-22.9, adult
CPT/HCPCS: 70496; 70498; 71045; 80048; 80053; 80061; 80307; 81001; 82948; 82962; 83036; 84484; 85025; 85610; 85730; 86850; 86900; 86901; 87081; 92526; 92610; 93005; 97110; 97163; 97167; 97530; 97535; 99291; J2270; 36415-L1; 36415-TC; 70450; 70450-TC